=== PATIENT | male | born 1955 | race Caucasian/White ===

== ENCOUNTER 2019-08-07 10:41 | Outpatient (RCR) | payer OTHER, SELFPAY ==
--- NOTE | 2019-08-07 11:30 | PCSTNOTE ---
Addendum entered by ANTHONY Hubbard 08/19/19 12:26: Upon completion of a modified barium swallow evaluation, which revealed normal swallow ability, it has been determined that no further speech therapy is warranted at this time. Original Note: Pt came with order which stated dysphagia therapy; Pt stated that he has not completed a modified barium swallow (MBS) indicating definitively that he, in fact, has dysphagia. Dr Gupta's office was notified re this matter. Office staff Maribel stated they would contact the pt to schedule the MBS and to table the therapy for now until its definitively indicated.
== END 2019-11-05 23:59 | disposition home or self-care (01) ==
LOC: ANHST 10:41
PROVIDERS: PCP Family Medicine; Visit Provider Internal Medicine Critical Care Medicine
DX: R13.10 Dysphagia, unspecified (principal); R05 Cough
CPT/HCPCS: 99199

== ENCOUNTER 2019-08-19 09:40 | Outpatient (CLI) | payer OTHER, SELFPAY ==
--- NOTE | ~2019-08-19 | XR_ITS ---
EXAMINATION: XR barium swallow modified EXAM DATE: 08/19/2019 10:09 INDICATION: Dysphagia. TECHNIQUE: Modified barium esophagram was performed by myself to administered fluoroscopy, in conjun ction with speech pathologist who administered barium in varying consistencies as per speech patholog ist documentation. This was recorded on tape. The DAP for this procedure was 0.6 Gycm2. FINDINGS: Oral stage: Adequate function. Pharyngeal phase: Adequate function. Laryngeal penetration: None. Aspiration: None. Laryngeal sensitivity: Present. IMPRESSION: Normal modified esophagram exam. Please refer to speech pathologist findings and specifi c feeding recommendations. Reviewed, dictated and finalized at location A. RUCTOR DANCING IMPRESSION: Normal modified esophagram exam. Please refer to speech pathologis t findings and specific feeding recommendations.
--- NOTE | 2019-08-19 12:25 | STOPEVAL ---
MODIFIED BARIUM SWALLOW EVALUATION: Thank you for referring this patient to [facility]. Attending Provider: Mcehe Gupta MD Referring Provider: KRISTYN Outpatient Evaluation Start: 08/19/19 11:03 Freq: Status: Active Protocol: Document 08/19/19 10:00 CHRISTAL (Rec: 08/19/19 11:10 BECHERERT [id number]) Therapy Assessment Status Assessment Status Assessment Status Evaluation Evaluation Information Problem Diagnosis dysphagia Prior Level of Function Prior Swallow Level Prior Intake Method Oral Prior Diet Regular (Level 7 Diet) Prior Liquid Consistency Thin (Level 0 Diet) Prior Cognition/Communication Prior Communication Level No Impairment Pain Assessment Timing of Pain Assessment Timing of Pain Assessment Assessment Self Report Self Report Pain Level 0 Pain Scale Pain Scale Used Numeric (1 - 10) Pain Score Pain Score 0: Self Report Modified Barium Swallow Evaluation Recent Swallowing History Reported Difficult Consistencies Unable to Identify Intake Method Prior to Swallow Oral Evaluation Diet Prior to Swallow Evaluation Regular, Level 7 Liquid Consistency Prior to Swallow Thin (0) Evaluation Consistency Thin Uncontrolled 2 Method of Presentation Straw Oral Preparatory Symptoms None Oral Phase Symptoms None Pharyngeal Phase Symptoms None Severity of Vallecular Residue None - 0% No Residue Severity of Pyriform Sinus Residue None - 0% No Residue 8 Point Laryngeal Penetration-Aspiration Material Does Not Enter Airway Scale Cervical/Esophageal Symptoms None Thin Uncontrolled 1 Method of Presentation Cup Oral Preparatory Symptoms None Oral Phase Symptoms None Pharyngeal Phase Symptoms None Severity of Vallecular Residue None - 0% No Residue Severity of Pyriform Sinus Residue None - 0% No Residue 8 Point Laryngeal Penetration-Aspiration Material Does Not Enter Airway Scale Cervical/Esophageal Symptoms None Solid Consistency Other Amount tested with cracker as well as liquid/solid mix Method of Presentation Spoon Oral Preparatory Symptoms None Oral Phase Symptoms None Pharyngeal Phase Symptoms None Severity of Vallecular Residue None - 0% No Residue Severity of Pyriform Sinus Residue None - 0% No Residue 8 Point Laryngeal Penetration-Aspiration Material Does Not Enter Airway Scale Pureed Consistency Method of Presentation Spoon Oral Preparatory Symptoms None Oral Phase Symptoms None Pharyngeal Phase Symptoms None Severity of Vallecular Residue None - 0% No Residue
== END 2019-08-19 09:41 | disposition home or self-care (01) ==
LOC: ANHIMG 09:44
PROVIDERS: PCP Family Medicine; Visit Provider Internal Medicine Critical Care Medicine
DX: R13.10 Dysphagia, unspecified (principal)
CPT/HCPCS: 92611

== ENCOUNTER 2020-02-18 02:18 | Outpatient (CLI) | payer OTHER, SELFPAY ==
[2020-02-18 18:38] LABS: SARS-CoV-2 RNA PCR Negative
== END 2020-02-18 02:19 | disposition home or self-care (01) ==
LOC: ANHCOVIDDT 02:18
PROVIDERS: PCP Family Medicine; Visit Provider Podiatrist Foot & Ankle Surgery
DX: Z01.812 Encounter for preprocedural laboratory examination (principal); Z20.828 Contact with and (suspected) exposure to other viral communicable diseases
CPT/HCPCS: 87635; C9803; U0003

== ENCOUNTER 2020-02-20 00:42 | Day surgery (SDC) | payer OTHER, SELFPAY ==
[2020-02-03 08:37] VITALS: BMI 30.2
[2020-02-20] VITALS (7 sets, daily range): BP systolic 102–142; BP diastolic 66–92; PULSE 64–71; RESP 12–16; TEMP 36.4–36.6; O2SAT 95–100
--- NOTE | ~2020-02-20 | XR_ITS ---
EXAMINATION: XR surgery orthopedic EXAM DATE: 02/20/2020 11:13 INDICATION: Nonunion repair. TECHNIQUE: Fluoroscopy used during XR surgery orthopedic performed by Dr. Elliot Durbin JR MD. The DAP for this procedure was 1.2 cGycm2. No prior FINDINGS: Status post 1st metatarsophalangeal arthrodesis with surgical plate bridging this joint, e vidence of gas. Correlate with procedure note. IMPRESSION: Fluoroscopy used during XR surgery orthopedic. Reviewed, dictated and finalized at location B.
[2020-02-20] MEDS: LACTATED RINGERS 1,000 ML 30 ML IV CONT ×2 (07:15→11:28)
--- NOTE | 2020-02-20 07:19 | WPDANESEPPF ---
Anes - Initial Pre Proc Eval Procedure: Operation Date: 02/20/20 09:00 Proposed Procedures p Repair Nonunion First Metatarsal Phalangeal Joint Right Foot - Elliot Durbin JR, MD Date/Time: 02/20/20 07:19 Surgeon: Elliot Durbin JR, MD Pre Op Diagnosis: NON UNION 1ST MPJ RIGHT FOOT Patient Data Age: 64 Gender: M Height: 5 ft 10 in Weight: 91.5 kg Allergies Allergy/AdvReac Type Severity Reaction Status Date / Time No Known Allergies Allergy unk Uncoded 02/20/20 07:06 Home Medications Medication Instructions Recorded Confirmed Type aspirin 325 mg tablet,delayed 325 mg PO DAILY 07/16/19 02/20/20 History release ezetimibe 10 mg tablet 10 mg PO DAILY #90 tablet 12/17/19 02/20/20 Rx Patient hx anesthesia problems: none Family hx anesthesia problems: none PMFSH Past Medical History Medical History COPD (chronic obstructive pulmonary disease) Hyperlipidemia Tobacco use Surgical History Surgical History H/O foot surgery Family History Family History Other Family history of coronary artery disease Family history of primary malignant neoplasm of liver Hypertension Social History Social History Social History: pt smoke a half pack a day Smoking packs per day: 1 Smoking cigarettes per day: 20.0 Years smoked: 20 Smoking pack-years: 20.00 Smoking status: Current every day smoker Tobacco type: cigarettes Alcohol intake: current Drinks per week: 3 Substance use: never Substance use type: does not use Living arrangements: with family Gender identity (if verbalized by the patient): Male Sexual Orientation (if Verbalized by the Patient): Straight or Heterosexual Spiritual care concerns: No Anes - Eval Final PreProcedure Day of Procedure 02/20/20 07:19 Patient weight: overweight Heart: regular rate and rhythm Lungs: decreased breath sounds Airway: Mallampati scale class II Neurological: alert and oriented Last oral intake: >/= 8 hours ASA classification: III Emergent: no Anesthetic plan: proceed Anesthesia type and monitoring: general and standard monitoring Informed Consent: The patient's anesthetic plan and its attendant risks and benefits were discussed with the patient/family/POA. Questions were solicited and answers provided to the satisfaction of the patient/family/POA.
--- NOTE | 2020-02-20 07:25 | WPDHPUPDATE1 ---
History and Physical Update Update Date/Time: 02/20/20 07:25 History and Physical has been reviewed, including an updated exam of the patient. There are NO changes in the patient's condition. Risks, benefits, and alternatives have been discussed and questions answered. Patient agrees to proceed with procedure.
[2020-02-20] MEDS: ceFAZolin 2 GM/D5W 50 ML 2 GM/50 ML BAG IVPB (09:15)
--- NOTE | 2020-02-20 11:29 | PM.OP ---
Procedure Note - Brief Procedure Note - Brief Date of procedure: 02/20/20 Pre-op diagnosis: NON UNION 1ST MPJ RIGHT FOOT Post-op diagnosis: same Procedure performed: Repair of nonunion first metatarsal phalangeal joint of the right foot Anesthesia: GLMA Surgeon: Elliot Durbin JR, DPM Estimated blood loss (mL): 1 Complications: No immediate complications Condition: stable Disposition: same day
--- NOTE | 2020-02-20 15:57 | OP_ITS ---
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 PROCEDURE: Repair of nonunion of the first metatarsophalangeal joint of the right foot. PATHOLOGY: After exposure of the capsule, wound culture swab was taken and sent for aerobic and anaerobic culture and sensitivities as well as Gram stain, furthermore bone from the resection site of the nonunion from the head of the first metatarsal was resected and passed from the operative site and sent for gross and histopathology to evaluate for bone infection. ANESTHESIA: General LMA with local. HEMOSTASIS: Pneumatic ankle tourniquet at 250 mmHg. ESTIMATED BLOOD LOSS: Minimal. MATERIALS USED: One [employer] small revision first metatarsophalangeal joint plate, 1 tricortical allograft, 3-0 PDS, 4-0 Vicryl, and 4-0 Prolene. INJECTABLES: 20 mL of Exparel injected preoperatively. COMPLICATIONS: None. PROCEDURE IN DETAIL: Under mild sedation, the patient was brought into the operating room and placed on the operating table in the supine position. Pneumatic ankle tourniquet was placed about the patient's right ankle. Following general anesthesia, local anesthesia was obtained about the right foot utilizing 20 mL of Exparel infiltrated in a Mooney block along the base of the first metatarsal. The foot was then scrubbed, prepped, and draped in the usual aseptic manner. An Esmarch bandage was then used to exsanguinate the patient's right foot and pneumatic ankle tourniquet was then inflated. Surgery began in the following manner: Attention was directed to the dorsum of the first metatarsophalangeal joint of the right foot where an incision was made overlying the old incision. The incision was approximately 6 cm in length. The incision was continued deep down through the subcutaneous tissues using sharp and blunt dissection. There was no purulence or any signs of infection noted. At this point, the extensor hallucis longus was identified and retracted laterally. This exposed the hypertrophic capsule overlying the 1st metatarsophalangeal joint. A full length periosteal and capsular incision was made, full length of the skin incision. I exposed the entire base of the proximal phalanx as well as the distal first metatarsal including the plate overlying the nonunion site of the first metatarsophalangeal joint. There was loosening of the screws and plate noted. All of the screws were removed easily utilizing the Vixar plate system. Once the plate and screws were removed, fluoroscopic x-ray was used to make sure to visualize the nonunion site. At this point, utilizing a rongeur, the nonunion site was resected of all fibrous, pseudoarthrosis tissue at the first metatarsophalangeal joint. Next utilizing a sagittal bone saw, the proximal most portion of the base of the proximal phalanx was resected approximately 2-3 mm until healthy bone was visualized. The same was performed across the distal aspect of the first metatarsal. This bone was sent for gross and histopathology. At this point, a deep wound culture swab was also taken and sent for aerobic and anaerobic culture and sensitivities as well as Gram stain. Care was taken to make sure that there were no remnants of fibrous non union tissue remaining. A rotary power bur was used to remodel the base of the proximal phalanx as well as the head of the 1st metatarsal as the hypertrophic nonunion caused excessive bone formation. Once remodeling of the base of the proximal phalanx and first metatarsal was achieved, the wound site was flushed with copious amounts of sterile saline. There was s
== END 2020-02-20 13:01 | disposition home or self-care (01) ==
PROVIDERS: PCP Family Medicine; Visit Provider Podiatrist Foot & Ankle Surgery
PROC: (CPT 28750; principal; 2020-02-20 09:00)
DX: M96.0 Pseudarthrosis after fusion or arthrodesis (principal)
CPT/HCPCS: 28322; 87070; 87075; 87205; 88304; 88305; 88311; C1713; C9290; J0690; J1100; J2250; J2370; J2405; J2704; J3010; J7120

== ENCOUNTER 2020-09-17 13:54 | Outpatient (CLI) | payer OTHER, SELFPAY | END 2020-09-17 13:55 | disposition home or self-care (01) | LOC: ANHCOVIDVC 13:54 | PROVIDERS: PCP Family Medicine | DX: Z23 Encounter for immunization (principal) | CPT/HCPCS: 0001A; 91300 ==

== ENCOUNTER 2020-10-08 14:02 | Outpatient (CLI) | payer OTHER, SELFPAY | END 2020-10-08 14:03 | disposition home or self-care (01) | LOC: ANHCOVIDVC 14:02 | PROVIDERS: PCP Family Medicine | DX: Z23 Encounter for immunization (principal) | CPT/HCPCS: 0002A; 91300 ==

== ENCOUNTER 2020-12-22 09:43 | Outpatient (CLI) | payer OTHER, SELFPAY ==
--- NOTE | ~2020-12-22 | CT_ITS ---
EXAMINATION: CT sinus wo con DATE: 12/22/2020 09:58 INDICATION: Right-sided maxillary pain for 6 months. Headaches. TECHNIQUE: Computed tomography (CT) of the paranasal sinuses was performed without intravenous contra st. The dose-length product was 273.54 mGy-cm. Automated exposure control and iterative reconstructio n technique were employed. COMPARISON: None FINDINGS: Paranasal sinuses and mastoids are pneumatized. There is mild mucosal thickening of the max illary sinuses. Leftward nasal septal deviation. Ostiomeatal units are patent. No air-fluid levels. T here is mild mucosal thickening of the frontal and anterior ethmoid air cells. Mastoids are pneumatiz ed. IMPRESSION: 1. Mild sinus disease. Reviewed, dictated and finalized at location B. IMPRESSION: 1. Mild sinus disease.
== END 2020-12-22 09:44 | disposition home or self-care (01) ==
PROVIDERS: PCP Family Medicine; Visit Provider Nurse Practitioner Family
DX: J32.9 Chronic sinusitis, unspecified (principal); R51.9 Headache, unspecified
CPT/HCPCS: 70486

== ENCOUNTER 2021-02-15 17:09 | Inpatient (IN) | payer OTHER, SELFPAY ==
[2021-02-15] VITALS (8 sets, daily range): BP systolic 135–165; BP diastolic 79–92; PULSE 61–78; RESP 18–20; TEMP 36.5–37.2; O2SAT 97–100; BMI 29.4
--- NOTE | ~2021-02-15 | XR_ITS ---
EXAMINATION: XR surgery orthopedic DATE: 02/17/2021 11:14 INDICATION: Right forefoot osteomyelitis. TECHNIQUE: 2 intraoperative fluoroscopic views of right foot were obtained. I was not present. Fluoro scopy exposure time was 6 seconds. COMPARISON: Right foot radiographs 02/15/2021 FINDINGS: The initial images demonstrate an arthrodesis procedure of first metatarsophalangeal joint with plate and screws. The second image demonstrates removal of the hardware and amputation at the di aphysis of first metatarsal. There is an old fracture of neck of third metatarsal. IMPRESSION: 1. Transmetatarsal amputation of the first ray. Reviewed, dictated and finalized at location B.
--- NOTE | ~2021-02-15 | XR_ITS ---
XR foot RT min 3V DATE: 02/15/2021 18:01 INDICATION: Right foot ulcer. 2 previous surgeries to first and second digits. TECHNIQUE: 4 views COMPARISON: 07/26/2010 right foot FINDINGS: There is a plate and screws spanning from the proximal shaft of the first metatarsal to the mid shaft of the proximal phalanx of the first digit. There is extensive bone destruction at the first metatarsal head and base of the first proximal phala nx. There is surrounding prominent soft tissue swelling. The radiographic findings are highly suspi cious for osteomyelitis. There is prominent lucency surrounding the proximal and distal aspects of the first ray surgical plat e, compatible with loosening. There is a fusion device spanning the proximal interphalangeal joint of the second digit. There is flattening and deformity of the third metatarsal head, shortening of the third metatarsal santi ne and chronic organized callus of the distal shaft and neck and head of this third digit, consistent with old healed fracture. Osteonecrosis of the third metatarsal head is not excluded. There is osteoarthritis at the tarsal and tarsal metatarsal joints. IMPRESSION: Suspected osteomyelitis of the first metatarsal and proximal phalanx of the first digit Loosening of surgical fusion plate at first metatarsophalangeal area Status post surgical fusion at second PIP joint Old fracture deformity/shortening of third metatarsal; possible osteonecrosis of third metatarsal hea d Reviewed, dictated and finalized at location A. IMPRESSION: Suspected osteomyelitis of the first metatarsal and proximal phalan x of the first digit Loosening of surgical fusion plate at first metatarsophalangeal area Status post surgical fusion at second PIP joint Old fracture deformity/shortening of third metatarsal; possible osteonecrosis o f third metatarsal head
[2021-02-15 17:56] LABS: Basophils Absolute Auto 0.1 K/mm3 (0.0-0.1); Basophils Percent Auto 1.1 % (0.2-1.2); Eosinophils Absolute Auto 0.3 K/mm3 (0-0.3); Eosinophils Percent Auto 3.2 % (0-4.4); Hematocrit 41.5 % (42.0-52.0); Hemoglobin 14.2 g/dL (14.0-18.0); Immature Granulocyte Absolute 0.02 K/mm3 (0.00-0.031); Immature Granulocyte Percent A 0.2 % (0-0.5); Lymphocytes Percent Auto 25.2 % (18.3-44.2); Mean Corpuscular HGB Conc 34.2 g/dl (32-36); Mean Corpuscular Hemoglobin 33.3 pg (26-34); Mean Corpuscular Volume 97.2 fl (80-100); Mean Platelet Volume 9.8 fl (7.4-10.4); Monocytes Percent Auto 12.5 % (2.6-8.5); Neutrophils Absolute Auto 4.8 K/mm3 (1.3-6.7); Neutrophils Percent Auto 57.8 % (45.5-73.1); Platelet Count Result 187 k/mm3 (150-375); Red Blood Count 4.27 M/mm3 (4.6-6.20); Red Cell Distribution Width 12.1 % (11.5-14.5); White Blood Count 8.3 K/mm3 (4.5-10.0)
[2021-02-15 18:21] LABS: Alanine Aminotransferase 35 U/L (4-50); Albumin Level 4.2 g/dL (3.5-5.1); Alkaline Phosphatase 51 U/L (38-126); Anion Gap 5 mmol/L (8-16); Aspartate Amino Transferase 38 U/L (17-59); Bilirubin,Total 0.4 mg/dL (0.2-1.3); Blood Urea Nitrogen 13 mg/dL (9-20); Calcium 9.5 mg/dL (8.4-10.2); Carbon Dioxide 27 mmol/L (22-30); Chloride 107 mmol/L (98-107); Estimated CRCL calculation 68 ml/min; Estimated Glomerular Filt Rate > 60; Glucose 84 mg/dL (65-110); Potassium 4.1 mmol/L (3.4-5.0); Sodium 139 mmol/L (137-145)
[2021-02-15 18:24] LABS: CRP 3.6 mg/dL (<1.0)
[2021-02-15 18:36] LABS: Erythrocyte Sedimentation Rate 45 mm/hr (0-20)
--- NOTE | 2021-02-15 19:29 | ED.GENADULT ---
HPI - General Adult General Chief complaint: Unspecified Stated complaint: sent by PCP Time Seen by Provider: 02/15/21 19:10 Source: patient Mode of arrival: ambulatory Limitations: no limitations History of Present Illness HPI narrative: Patient is sent here from the podiatry office for IV antibiotics for a right foot ulcer and cellulitis. Physician is requesting vancomycin and Zosyn x1. Patient states that he had chills approximately 3 days ago and was treated at home with leftover penicillin and those have resolved. His max temp was 101 at home. He states that he has had difficulty with ulcer on this foot for quite some time, this particular episode was precipitated by removing a callus on his right foot. He has peripheral neuropathy, he is not a diabetic, he is a smoker. Onset (ago): day(s) Related Data Home Medications Medication Instructions Recorded Confirmed aspirin 325 mg tablet,delayed 325 mg PO DAILY 07/16/19 01/11/21 release ezetimibe mg 02/15/21 Allergies Allergy/AdvReac Type Severity Reaction Status Date / Time No Known Allergies Allergy unk Uncoded 02/15/21 19:18 Review of Systems Review of Systems: All systems reviewed & are unremarkable except as noted in HPI and below PMFSH Past Medical History Medical History Abnormal CT of paranasal sinuses COPD (chronic obstructive pulmonary disease) Hyperlipidemia Tobacco use Surgical History Surgical History H/O foot surgery Family History Family History Other Family history of coronary artery disease Family history of primary malignant neoplasm of liver Hypertension Social History Social History Social History: pt smoke a half pack a day Smoking packs per day: 1 Smoking cigarettes per day: 20.0 Years smoked: 20 Smoking pack-years: 20.00 Smoking status: Current every day smoker Tobacco type: cigarettes Alcohol intake: current Drinks per week: 3 Substance use: never Substance use type: does not use Gender identity (if verbalized by the patient): Male Spiritual care concerns: No Exam Const: General: cooperative, healthy appearing and comfortable HENMT: Head: normal to inspection Ears: TM's normal bilaterally Mouth: Yes moist mucous membranes Resp: Effort & Inspection: normal respiratory effort Auscultation: clear to auscultation bilaterally Cardio: Rate: regular rate Rhythm: regular rhythm Peripheral pulses: Peripheral pulses 2+ throughout Skin: General skin exam: normal color (with exception of right great toe and surrounding area. ) and erythema (surrounding toes 1 & 2 right foot and swelling) Wounds: wounds noted (ulcer to right foot, just below great toe. debrided today in phys office.) Neuro: General: patient oriented x3 Extrem: Right lower extremity: normal capillary refill and foot Details: normal capillary refill and edema Location: of the dorsal foot, of the great toe and of another digit Location: the 2nd digit Psych: Appearance: grossly normal Course Course Emergency Course: Spoke with Dr. Durbin on the phone regarding x-ray findings. He would like the patient admitted for IV antibiotics until amputation on . Plan discussed with the patient and his and they are in agreement. Area of erythema was outlined here in the ER. Vital Signs Vital signs: Vital Signs Temperature 36.5 C 02/15/21 17:35 Pulse Rate 78 02/15/21 17:35 Respiratory Rate 18 02/15/21 17:35 Blood Pressure 139/85 02/15/21 17:35 Pulse Oximetry 100 02/15/21 17:35 Temperature 37.2 C 02/15/21 19:13 Pulse Rate 70 02/15/21 20:01 Respiratory Rate 18 02/15/21 20:01 Blood Pressure 145/82 H 02/15/21 20:01 Pulse Oximetry 100 02/15/21 20:01 Medical Decision Making Vital Signs Vital Signs: Vital Sign
--- NOTE | 2021-02-15 20:28 | PM.IMHP ---
H&P: HPI History of Present Illness Date/Time: 02/15/21 20:28 Chief Complaint: Right toe pain Narrative: Patient is a 65-year-old male with past medical history of cholesterol and CAD, and right toe surgery, presenting with pain and worsening apparent infection of right toe. Has had surgery and correction on right toe with Podiatry, was not welfare analyst's office as outpatient earlier today, and found that he had an infection, and was sent to emergency room here to be started on IV antibiotics. Patient says he feels good enough to not be admitted, and be treated as an outpatient, and denies systemic symptoms. Is not able to bear weight on the foot. Past medical history: Dyslipidemia TIA in 2018 Allergies: None reported Medications: Aspirin ezetimibe Family history: Unaware of major health problems run in the family Social history: Heavy smoking history Surgeries: Multiple procedures on the right toe ER course: Vitals: Unremarkable, including afebrile and not tachypneic, hypertension systolic blood pressure 145 Labs: No white count, however elevated ESR CRP Interventions: IV vancomycin and Zosyn ordered, foot x-ray shows suspected osteomyelitis of right big toe Review of Systems Constitutional: Constitutional: Reports as per HPI and Reports no additional constitutional complaints Cardiovascular: Cardiovascular: Denies chest pain and Denies palpitations Respiratory: Respiratory: Denies dyspnea and Denies dyspnea on exertion Gastrointestinal: Gastrointestinal: Denies abdominal pain, Denies bloating, Denies constipation and Denies diarrhea Musculoskeletal: Musculoskeletal: Reports no additional musculoskeletal complaints and Reports as per HPI Comments: Severe right toe pain and swelling Integumentary/Breasts: Skin/Breast: Reports dry skin, Reports pruritus and Reports unusual bruising Comments: Severe right toe pain and swelling Neurologic: Reports system reviewed and no additional complaints, except as documented, Denies confusion, Denies headache(s) and Denies numbness PMFSH Past Medical History Medical History Abnormal CT of paranasal sinuses COPD (chronic obstructive pulmonary disease) Hyperlipidemia Tobacco use Surgical History Surgical History H/O foot surgery Family History Family History Other Family history of coronary artery disease Family history of primary malignant neoplasm of liver Hypertension Social History Social History Social History: pt smoke a half pack a day Smoking packs per day: 1 Smoking cigarettes per day: 20.0 Years smoked: 20 Smoking pack-years: 20.00 Smoking status: Current every day smoker Tobacco type: cigarettes Alcohol intake: current Drinks per week: 3 Substance use: never Substance use type: does not use Gender identity (if verbalized by the patient): Male Spiritual care concerns: No Meds Home Medications and Allergies Home Medications Medication Instructions Recorded Confirmed Type aspirin 325 mg tablet,delayed 325 mg PO DAILY 07/16/19 01/11/21 History release ezetimibe mg 02/15/21 History Allergies Allergy/AdvReac Type Severity Reaction Status Date / Time No Known Allergies Allergy unk Uncoded 02/15/21 19:18 Vital Signs Vital Signs - 24 hr 02/15/21 17:35 02/15/21 18:55 02/15/21 19:01 Temperature 97.7 F 98.6 F Pulse Rate 78 74 Respiratory Rate 18 18 Blood Pressure 139/85 150/89 H 138/79 Pulse Oximetry 100 100 100 02/15/21 19:13 02/15/21 19:30 02/15/21 20:01 Temperature 98.9 F Pulse Rate 74 76 70 Respiratory Rate 18 18 18 Blood Pressure 138/79 140/86 145/82 H Pulse Oximetry 100 97 100 Exam Neck: Neck: no JVD Resp: Effort & Inspection: normal respiratory effort Auscultation: clear to auscultation bilaterally Cardi
--- NOTE | 2021-02-15 23:30 | ADMGEN ---
This patient, Servando Perez, was admitted to [facility] Surg Room 323-02. Patient/family oriented to hospital policies and general routines including ID bracelet, bed and alarms, visiting hours, pain management, procedures, bathroom and other care routines, personal items, smoking policy, room service/diet, and visiting hours. Information on how to activate the Rapid Response Team has been discussed. Patient/Family are encouraged to report perceived risks to care and to ask questions if they do not understand what they are told or what they should do.
[2021-02-16 06:00] VITALS: BP 129/80; PULSE 52; RESP 20; TEMP 36.2; O2SAT 100
[2021-02-16 06:44] LABS: Basophils Absolute Auto 0.1 K/mm3 (0.0-0.1); Basophils Percent Auto 1.2 % (0.2-1.2); Eosinophils Absolute Auto 0.3 K/mm3 (0-0.3); Eosinophils Percent Auto 3.9 % (0-4.4); Hemoglobin 14.3 g/dL (14.0-18.0); Immature Granulocyte Absolute 0.01 K/mm3 (0.00-0.031); Immature Granulocyte Percent A 0.2 % (0-0.5); Lymphocytes Absolute Auto 2.31 K/mm3 (0.9-3.2); Lymphocytes Percent Auto 35.8 % (18.3-44.2); Mean Corpuscular HGB Conc 33.3 g/dl (32-36); Mean Corpuscular Hemoglobin 33.3 pg (26-34); Monocytes Absolute Auto 0.8 K/mm3 (0.1-0.6); Monocytes Percent Auto 12.1 % (2.6-8.5); Neutrophils Percent Auto 46.8 % (45.5-73.1); Platelet Count Result 186 k/mm3 (150-375); Red Cell Distribution Width 12.2 % (11.5-14.5); White Blood Count 6.5 K/mm3 (4.5-10.0)
[2021-02-16 06:58] LABS: Alanine Aminotransferase 30 U/L (4-50); Alkaline Phosphatase 53 U/L (38-126); Anion Gap 6 mmol/L (8-16); Aspartate Amino Transferase 34 U/L (17-59); Bilirubin,Total 0.5 mg/dL (0.2-1.3); Blood Urea Nitrogen 13 mg/dL (9-20); Calcium 9.2 mg/dL (8.4-10.2); Carbon Dioxide 28 mmol/L (22-30); Chloride 104 mmol/L (98-107); Estimated CRCL calculation 68 ml/min; Estimated Glomerular Filt Rate > 60; Glucose 100 mg/dL (65-110); Phosphorus 3.8 mg/dL (2.5-4.5); Potassium 4.6 mmol/L (3.4-5.0); Sodium 138 mmol/L (137-145)
[2021-02-16] MEDS: ASPIRIN 81 MG CHEWABLE TABLET PO (08:37)
[2021-02-16] MEDS: ENOXAPARIN 40 MG/0.4 ML SYRINGE SUB-Q (08:37)
--- NOTE | 2021-02-16 11:28 | WPDINFPN2 ---
Progress Note: A&P Assessment and Plan (1) Osteomyelitis of great toe of right foot: Code(s): M86.9 - Osteomyelitis, unspecified Status: Acute Assessment and Plan: Probable (not confirmed by detailed imaging nor biopsy) acute osteomyelitis of R 1st toe and MT. REC Ctx #2. BCs in process. He requires removal of all hardware for proper treatment, and if this is done I request concurrent bone biopsy for histopathology and culture. Once hardware is removed, 4 weeks of IV therapy, choice modified by his culture result. If on other hand he has ray amputation, would not need prolonged IV antibiotics post op. Subjective Date/time seen: 02/16/21 11:28 Objective Data Vital Signs Vital Signs: Vital Signs - 24 hr 02/15/21 17:35 02/15/21 18:55 02/15/21 19:01 Temperature 36.5 C 37.0 C Pulse Rate 78 74 Respiratory Rate 18 18 Blood Pressure 139/85 150/89 H 138/79 Pulse Oximetry 100 100 100 02/15/21 19:13 02/15/21 19:30 02/15/21 20:01 Temperature 37.2 C Pulse Rate 74 76 70 Respiratory Rate 18 18 18 Blood Pressure 138/79 140/86 145/82 H Pulse Oximetry 100 97 100 02/15/21 23:00 02/15/21 23:05 02/16/21 06:00 Temperature 36.8 C 36.8 C 36.2 C L Pulse Rate 62 61 52 L Respiratory Rate 18 20 20 Blood Pressure 135/82 165/92 H 129/80 Pulse Oximetry 98 100 100 Intake/Output Intake/Output: Intake & Output 02/13/21 02/14/21 02/15/21 02/16/21 23:59 23:59 23:59 23:59 Intake Total 300 850 Balance 300 850 Meds/Results Medications: Active Medications Generic Name Dose Route Start Last Admin Trade Name Freq PRN Reason Stop Dose Admin Hydrocodone Bitart/Acetaminophen 1 tab 02/15/21 20:41 Hydrocodone/Acetaminophen (*Crx) 5-325 Mg Tablet PO Q6HR PRN Pain Aspirin 81 mg 02/16/21 08:00 02/16/21 08:37 Aspirin 81 Mg Chewable Tablet PO 81 mg DAILY@0800 RON Administration Enoxaparin Sodium 40 mg 02/16/21 09:00 02/16/21 08:37 Enoxaparin 40 Mg/0.4 Ml Syringe SUB-Q 40 mg DAILY RON Administration Ceftriaxone Sodium/Dextrose 1 gm in 50 mls @ 100 mls/hr 02/15/21 23:00 02/16/21 00:24 Rocephin 1 Gm/D5w 50 Ml IVPB Infused DAILY@2200 RON Infusion Silver Nitrate 1 applic 02/16/21 09:00 Silvergel (Elta) 45 Ml TOPICAL DAILY [facility] Radiology Results: ITS Impressions Foot X-Ray 02/15/21 18:04 IMPRESSION: Suspected osteomyelitis of the first metatarsal and proximal phalanx of the first digit Loosening of surgical fusion plate at first metatarsophalangeal area Status post surgical fusion at second PIP joint Old fracture deformity/shortening of third metatarsal; possible osteonecrosis of third metatarsal head Labs Labs: Laboratory Results - last 24 hr 02/15/21 02/15/21 02/15/21 17:49 17:49 17:49 WBC 8.3 RBC 4.27 L Hgb 14.2 Hct 41.5 L MCV 97.2 MCH 33.3 MCHC 34.2 RDW 12.1 Plt Count 187 MPV 9.8 Immature Gran % (Auto) 0.2 Neut % (Auto) 57.8 Lymph % (Auto) 25.2 Patrick % (Auto) 12.5 H Eos % (Auto) 3.2 Baso % (Auto) 1.1 Lymph # (Auto) 2.10 Patrick # (Auto) 1.0 H Eos # (Auto) 0.3 Baso # (Auto) 0.1 Abs Immat Gran (auto) 0.02 Absolute Neuts (auto) 4.8 Absolute Nucleated RBC 0.0 Nucleated RBC % 0.0 ESR Sodium 139 Potassium 4.1 Chloride 107 Carbon Dioxide 27 Anion Gap 5 L BUN 13 Creatinine 1.00 Estim Creat Clear Calc 68 Estimated GFR > 60 Glucose 84 Lactic Acid 1.0 Calcium 9.5 Phosphorus Magnesium Total Bilirubin 0.4 AST 38 ALT 35 Alkaline Phosphatase 51 C-Reactive Protein Total Protein 7.0 Albumin 4.2 02/15/21 02/15/21 02/16/21 17:49 17:49 06:11 WBC 6.5 RBC 4.30 L Hgb 14.3 Hct 43.0 MCV 100.0 MCH 33.3 MCHC 33.3 RDW 12.2 Plt Count 186 MPV 10.0 Immature Gran % (Auto) 0.2 Neut % (Auto) 46.8 Lymph % (Auto) 35.8 Patrick % (Auto) 12.
--- NOTE | 2021-02-16 11:28 | PM.IMPN ---
Progress Note: A&P Assessment and Plan (1) Osteomyelitis: Code(s): M86.9 - Osteomyelitis, unspecified Status: Acute Assessment and Plan: Patietn with chronic right 1st metatarsal changes s/p surgery with hardware. Pt presents with small draining ulcer with xray showing suspected osteomyelitis of the first metatarsal and proximal phalanx of the first digit, loosening of surgical fusion plate at first metatarsophalangeal area and old fracture of 3rd metatarsal. Can not exclude osteonecrosis to the third metatarsal head. Concner for infected surgical hardware. No fevers and normal WBC. Was on Zosyn and Vanco but changed to Rocephin now. Continue current abx. Appreciate ID input. Appreciate Podiatry input. (2) Tobacco abuse: Code(s): Z72.0 - Tobacco use Status: Acute Assessment and Plan: Patient was educated about the benefits of smoking cessation. (3) Hyperlipidemia: Code(s): E78.5 - Hyperlipidemia, unspecified Status: Acute Assessment and Plan: Stable. Okay to resume Zetia. (4) Peripheral neuropathy: Code(s): G62.9 - Polyneuropathy, unspecified Status: Acute Assessment and Plan: Patient has a history of peripheral neuropathy that is longstanding. No clear diagnosis. He has been screened for diabetes is negative. Glucose normal here. Possibly related to his chronic back pain. Will check B12, etc. (5) DVT prophylaxis: Code(s): Z29.9 - Encounter for prophylactic measures, unspecified Status: Acute Assessment and Plan: Lovenox Subjective Date/time seen: 02/16/21 11:29 Interval history: 65yo male with hx of TIA, HLD and chronic right toe surgeries here for right foot infection. Assuming care. Chart reviewed. Patient denies having any CAD. He has had multiple surgeries to the right great toe. Had surgery to the right great toe in 2019 with surgical repair and repeat surgery in 2020. He also has had infections in the past treated with oral abx but not assisted IV abx. Was taking oral abx from his prior to admission. Feels well. No pain to the LE due to bilateral LE neuropathy. He has seen neurology but no etiology of the neuropathy. He has had low back pain with sciatica in the past but this has improved. No CP or SOB. No n/v/d. COVD vaccine in august with [employer]. Exam Narrative: AF 97.2 129/80 52 20 100% ra Gen - NARD Chest - CTA bilaterally, nml RR CV - RRR S1/S2 Abd - Soft, NT/ND, Positive BS Ext - No pedal edema. edema nd deformity to the right great toe and distal medial right foot Neuro - Alert and oriented. Nonfocal exam. Psych - Nml mood and affect Skin - right plantar surface with approx 1cm round ulcer with serosang staining to the dressing. Objective Data Vital Signs Vital Signs: Vital Signs - 24 hr 02/15/21 17:35 02/15/21 18:55 02/15/21 19:01 Temperature 97.7 F 98.6 F Pulse Rate 78 74 Respiratory Rate 18 18 Blood Pressure 139/85 150/89 H 138/79 Pulse Oximetry 100 100 100 02/15/21 19:13 02/15/21 19:30 02/15/21 20:01 Temperature 98.9 F Pulse Rate 74 76 70 Respiratory Rate 18 18 18 Blood Pressure 138/79 140/86 145/82 H Pulse Oximetry 100 97 100 02/15/21 23:00 02/15/21 23:05 02/16/21 06:00 Temperature 98.3 F 98.3 F 97.2 F L Pulse Rate 62 61 52 L Respiratory Rate 18 20 20 Blood Pressure 135/82 165/92 H 129/80 Pulse Oximetry 98 100 100 Intake/Output Intake/Output: Intake & Output 02/13/21 02/14/21 02/15/21 02/16/21 23:59 23:59 23:59 23:59 Intake Total 300 850 Balance 300 850 Meds/Results Medications: Active Medications Generic Name Dose Route Start Last Admin Trade Name Freq PRN Reason Stop Dose Admin Hydrocodone Bitart/Acetaminophen 1 tab 02/15/21 20:41 Hydrocodone/Acetaminophen (*Crx) 5-325 Mg Tablet PO Q6HR PRN Pain Aspirin 81 mg 02/16/21 08:00 02/16/21 08:37 Aspirin 81 Mg Chewable Tablet PO 81 mg DAILY@
[2021-02-16] MEDS: SILVERGEL (ELTA) 45 ML 1 APPLIC TOPICAL (12:03)
--- NOTE | 2021-02-16 12:35 | PM.IMHP ---
H&P: HPI History of Present Illness Date/Time: 02/16/21 12:35 Mr Perez is a long time established patient that has been diagnosed with idiopathic neuropathy. 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 The patient has had an attempted arthrodesis of the first metatarsal phalangeal joint in the past that subsequently went on to a non union. Despite the non union he did go on to heal the neuropathic ulcer for many years. He presented yesterday,February 15, 2021, in my office with a red swollen right foot with drainage to the bottom of his right medial plantar forefoot. He states the drainage started 4 days prior. The patient tried local wound care on his own for several days and took Penicillin pills that his had left over from a prior sinus infection. He states that the swelling and redness worsened so he finally decided to call my office. I did perform an in-office debridement of the ulceration that was noted to extend to bone plantarly. I urged the patient to go to the ER for IV antibiotics and to be admitted for his deep infection. The patient relates fevers at home for two days. Chief Complaint: Neuropathic infected ulceration right foot Review of Systems Constitutional: Constitutional: Reports as per HPI [facility] Past Medical History Medical History Abnormal CT of paranasal sinuses COPD (chronic obstructive pulmonary disease) Hyperlipidemia Peripheral neuropathy Tobacco use Surgical History Surgical History H/O foot surgery Family History Family History Other Family history of coronary artery disease Family history of primary malignant neoplasm of liver Hypertension Social History Social History Social History: pt smoke a half pack a day Smoking packs per day: 1 Smoking cigarettes per day: 20.0 Years smoked: 20 Smoking pack-years: 20.00 Smoking status: Current every day smoker Tobacco type: cigarettes Alcohol intake: never Drinks per week: 3 Substance use: never Substance use type: does not use Gender identity (if verbalized by the patient): Male Spiritual care concerns: No Meds Home Medications and Allergies Home Medications Medication Instructions Recorded Confirmed Type aspirin 325 mg tablet,delayed 325 mg PO DAILY 07/16/19 02/15/21 History release ezetimibe 10 mg PO QPM 02/15/21 02/15/21 History Allergies Allergy/AdvReac Type Severity Reaction Status Date / Time No Known Allergies Allergy unk Uncoded 02/15/21 19:18 Vital Signs Vital Signs - 24 hr 02/15/21 17:35 02/15/21 18:55 02/15/21 19:01 Temperature 36.5 C 37.0 C Pulse Rate 78 74 Respiratory Rate 18 18 Blood Pressure 139/85 150/89 H 138/79 Pulse Oximetry 100 100 100 02/15/21 19:13 02/15/21 19:30 02/15/21 20:01 Temperature 37.2 C Pulse Rate 74 76 70 Respiratory Rate 18 18 18 Blood Pressure 138/79 140/86 145/82 H Pulse Oximetry 100 97 100 02/15/21 23:00 02/15/21 23:05 02/16/21 06:00 Temperature 36.8 C 36.8 C 36.2 C L Pulse Rate 62 61 52 L Respiratory Rate 18 20 20 Blood Pressure 135/82 165/92 H 129/80 Pulse Oximetry 98 100 100 Exam Extrem: Ankle/foot/toe images: 1. Discontinuity of skin to plantar first metatarsal head extending to bone. Periwound erythema and severe edema present to the entire first metatarsal phalangeal joint area. H&P: Results Labs Labs: Short CBC 02/15/21 02/16/21 Range/Units 17:49 06:11 WBC 8.3 6.5 (4.5-10.0) K/mm3 Hgb 14.2 14.3 (14.0-18.0) g/dL Hct 41.5 L 43.0 (42.0-52.0) % Plt Count 187 186 (150-375) k/mm3 [facility] 02/15/21 02/16/21 17:49 06:11 Sodium 139 138 Potassium 4.1 4.6 Chloride 107 104 Carbon Dioxide 27 28 BUN 13 13 Creatinine 1.00 1.00 Glucose 84
[2021-02-16 13:27] LABS: Folic Acid 6.4 ng/mL (2.76->20)
--- NOTE | 2021-02-16 15:20 | CONS_ITS ---
DATE OF CONSULTATION: 02/16/2021 REASON FOR CONSULTATION: Osteomyelitis. HISTORY OF PRESENT ILLNESS: 65-year-old male who reminds I had seen him in the distant past. He has had previous right first toe deviation apparently due to structural abnormalities and 2 years ago underwent attempted correction with hardware. This apparently was unsuccessful and a year ago he had repeat operation which unfortunately also did not correct his problem. He has had a previous ulcer, which seemed to heal over the plantar aspect of the first metatarsal head. About 4 to 5 days before admission, the patient had a callus noted on the plantar aspect of the foot and he removed this on his own. He then noted a skin defect and deep ulcer at the same time. This began to drain scant cloudy fluid, and over the next several days, edema and erythema developed of the entire distal medial foot as well as the first toe. This is not painful, but he does have peripheral neuropathy and hence decreased sensation. He saw Dr. Durbin in the office on the day of admission where the ulcer was debrided to a greater depth in diameter. He then was instructed to go to the emergency room for single doses of piperacillin and vancomycin, for reasons I cannot ascertain he was admitted instead. I stopped the above and started him on ceftriaxone. He denies any other known trauma. No known fever, but at home he had chills without rigors. No night sweats. He took several doses of his 's amoxicillin or similar agent after he had the chills. No other recent antibiotics. No immunosuppressants. HABITS: Ongoing smoker 3/4 to 1 pack per day. No alcohol. PRESENT MEDICATIONS: As above. ALLERGIES: NONE KNOWN. PAST MEDICAL HISTORY: Peripheral neuropathy, COPD, hyperlipidemia. FAMILY HISTORY: CAD, cancer. SOCIAL HISTORY: He is . Lives locally. No family at the bedside currently. REVIEW OF SYSTEMS: Chronic cough, the neuropathy. 14-point review otherwise negative. PHYSICAL EXAMINATION: GENERAL: This is a middle-aged male who appears younger than his actual age, in no acute distress. VITAL SIGNS: Since arrival afebrile, 129/80, 52, 20, 100% on room air. SKIN: Warm and dry. No rashes. No hemorrhagic lesions. NODES: He has no cervical adenopathy. EENT: Pupils equal, round, and reactive to light. The oropharynx, oral mucosa normal. NECK: No masses, thyromegaly, tenderness, meningismus. LUNGS: Clear to auscultation and percussion other than scattered rales. No wheezing. No rhonchi. Breath sounds are vesicular. CARDIAC: Regular rate and rhythm. No murmur, gallop, or rub. Pulses are 1+ and equal. ABDOMEN: Nontender. No masses. No organomegaly. EXTREMITIES: Left lower extremity is bland. On the right, he has edema and erythema of the medial distal foot as well as the same over the toe #1. He has a plantar ulcer 1 cm in diameter, can be probed, but not to bone. There is crusting. No necrosis. He has no odor. He has diminished range of motion and lateral deviation at the MTP. LABORATORY DATA: Blood cultures in process. Wound culture also obtained by swab, in process. His white count normal yesterday and again today, hemoglobin 14.3, platelets are 186. Chemistry panel normal entirely. CRP 3.6. RADIOLOGY: I personally reviewed his foot x-ray. This shows hardware in place with lucencies surrounding. I reviewed the radiologist's interpretation as well. ASSESSMENT: 1. Edema and erythema of the right MTP area, acute onset, I think he likely has infected hardware with concurrent acute osteomyelitis of the distal metatarsal and the proximal phalanx. This also may be aseptic loosening, but exam does not support that. Skin melody are suspected including staph and streptococci.
[2021-02-16] MEDS: EZETIMIBE 10 MG TABLET PO (18:07)
[2021-02-16 19:41] VITALS: BP 142/76; PULSE 55; RESP 18; TEMP 36.5; O2SAT 99
[2021-02-17] VITALS (13 sets, daily range): BP systolic 129–157; BP diastolic 72–95; PULSE 48–96; RESP 12–18; TEMP 36.1–36.9; O2SAT 95–100
[2021-02-17] MEDS: LACTATED RINGERS 1,000 ML 30 ML IV CONT ×2 (08:35→11:36)
--- NOTE | 2021-02-17 09:20 | WPDHPUPDATE1 ---
History and Physical Update Update Date/Time: 02/17/21 09:20 History and Physical has been reviewed, including an updated exam of the patient. There are NO changes in the patient's condition. Risks, benefits, and alternatives have been discussed and questions answered. Patient agrees to proceed with procedure. Consented for partial first ray resection right foot.
--- NOTE | 2021-02-17 09:23 | WPDANESEPPF ---
Anes - Initial Pre Proc Eval Procedure: Operation Date: 02/17/21 09:30 Proposed Procedures p Partial First Ray Resection Right Foot - Elliot Durbin JR, MD Date/Time: 02/17/21 09:23 Surgeon: Rosalio Luong MD Pre Op Diagnosis: Osteomyelitis Patient Data Age: 65 Gender: M Height: 1.78 m Weight: 93 kg Last Vital Signs Temp 97.8 F 02/17/21 06:14 Pulse 55 L 02/17/21 06:14 Resp 18 02/17/21 06:14 BP 135/81 02/17/21 06:14 Pulse Ox 97 02/17/21 06:14 Allergies Allergy/AdvReac Type Severity Reaction Status Date / Time No Known Allergies Allergy unk Uncoded 02/15/21 19:18 Home Medications Medication Instructions Recorded Confirmed Type aspirin 325 mg tablet,delayed 325 mg PO DAILY 07/16/19 02/15/21 History release ezetimibe 10 mg PO QPM 02/15/21 02/15/21 History Laboratory Tests 02/16/21 06:10 Vitamin B12 495.0 pg/mL pg/mL (239-931) Folate 6.4 ng/mL ng/mL (2.76->20) Patient hx anesthesia problems: none Family hx anesthesia problems: none PMFSH Past Medical History Medical History Abnormal CT of paranasal sinuses COPD (chronic obstructive pulmonary disease) Hyperlipidemia Peripheral neuropathy Tobacco use Surgical History Surgical History H/O foot surgery Family History Family History Other Family history of coronary artery disease Family history of primary malignant neoplasm of liver Hypertension Social History Social History Social History: pt smoke a half pack a day Smoking packs per day: 1 Smoking cigarettes per day: 20.0 Years smoked: 20 Smoking pack-years: 20.00 Smoking status: Current every day smoker Tobacco type: cigarettes Alcohol intake: never Drinks per week: 3 Substance use: never Substance use type: does not use Gender identity (if verbalized by the patient): Male Spiritual care concerns: No Anes - Eval Final PreProcedure Day of Procedure 02/17/21 09:23 Patient weight: obese Heart: regular rate and rhythm Lungs: clear to auscultation Airway: Mallampati scale class II Neurological: alert and oriented Last oral intake: >/= 8 hours ASA classification: III Emergent: no Anesthetic plan: proceed Anesthesia type and monitoring: general GIVS and standard monitoring Informed Consent: The patient's anesthetic plan and its attendant risks and benefits were discussed with the patient/family/POA. Questions were solicited and answers provided to the satisfaction of the patient/family/POA.
[2021-02-17] MEDS: SILVERGEL (ELTA) 45 ML 1 APPLIC TOPICAL (10:13)
[2021-02-17] MEDS: BUPIVACAINE HCL 0.5% PF 30 ML VIAL INFILTRATE (10:22)
[2021-02-17] MEDS: LIDOCAINE HCL 2% PF INJ 5 ML VIAL 20 ML INFILTRATE (10:22)
[2021-02-17] MEDS: VANCOMYCIN HCL 1,000 MG VIAL 1000 MG TOPICAL (10:57)
--- NOTE | 2021-02-17 11:54 | W.PM.PROC2 ---
Procedure Note - Detailed Date of Procedure 02/17/21 Pre-op Diagnosis Osteomyelitis right forefoot Post-op Diagnosis same Procedure Performed Partial first ray resection site [facility] foot Surgeon Elliot Durbin JR, DPM Anesthesia MAC and local Indications Osteomyelitis right foot Description of Procedure Description of Procedure Under mild sedation, the patient was brought to the operating room, placed on the operating table in the supine position. A pneumatic ankle tourniquet was placed about the patient's ankle. Following general anesthesia and a proximal foot block with 20cs's of a one to one mixture of 2% Lidocaine plain and 0.5% Marcaine plain, the foot was then scrubbed, prepped, and draped in the usual aseptic manner. An Esmarch bandage was then used to examine the patient's foot and pneumatic ankle tourniquet was then inflated. Attention was directed to the dorsal lateral aspect of the hallux and 1st metatarsal phalangeal joint region right foot where a Tennis Racquet style incision was made about the base of the hallux and extending proximally and dorsally along the central shaft of the first metatarsal. The incision was continued deep down through the subcutaneous tissues using sharp and blunt dissection. All bleeders were cauterized as necessary. I made a periosteal incision exposing the dorsal plate over the nonunion site to the first metatarsal phalangeal joint. I utilized the screw removal set to remove the [employer] dorsal plate and screws. I removed the plate because I wanted to maintain as much of the length of the healthy viable distal first metatarsal. I utilized a sagittal bone saw to resect the distal first ray including the hallux, the distal nonunion site as well as the distal first metatarsal. I also resected a clearance fragment of the distal first metatarsal and sent for gross/histo as well as microbiology studies. I resected the sesamoid apparatus at this point along with any non viable tissue. There was no purulence noted. No signs of myonecrosis. I utilized the pulsed lavage system and 3L of saline to thoroughly flush the resection site. I packed the distal first ray resection site with 5cc's of antibiotic beads from [employer] osteoset kit integrated with 1g of Vancomycin. The edges were smoothed out with a bone rasp. I resected the plantar ulcerated tissue with two converging semi-elliptical incisions. Next, the skin was reapproximated and coapted utilizing 3-0 Prolene in Simple interrupted suture fashion technique. I packed the plantar wound with 1/4 Iodoform gauze which will be changed daily post op. Upon completion of the procedure, the incision was dressed with Adaptic, 4 x 4's, Kerlix, and Coban. The pneumatic ankle tourniquet was then deflated and a prompt hyperemic response noted to all remaining digits of the foot. A surgical shoe will be applied. The patient did very well with the procedure and the anesthesia. The patient was transferred to the recovery room with vital signs stable and vascular status intact to all remaining toes of the affected foot. Following a period of postoperative monitoring, the patient will be admitted back to his inpatient room with the following written and oral postoperative instructions: 1. Keep the dressing clean, dry, and intact. Nursing to change the dressing daily and pack the plantar wound with 1/4 iodoform gauze and 4x4 gauze, kerlix and HADLEY Wrap. Use a cast protector bag with showers. 2. The patient should use a surgical shoe for ambulation postoperatively. 3. The patient should be on bedrest with bathroom privileges and elevate the affected foot when at rest. 4. The patient was transferred to the med/surg floor. 5. Continue with DVT prophylaxis per hospitalist. Estimated Blood Loss 5 Drains No Packing Yes Pathology yes (Distal first ray sent for gross and histopathology. Clearance fragment sent for gross and histo and microbiology) Complications No
--- NOTE | 2021-02-17 12:45 | SUR.PHASEI ---
[id number]- Call to floor RN to give report. Per KHADIJAH Ayers she will call back shortly for report when available.
--- NOTE | 2021-02-17 13:06 | PM.IMPN ---
Progress Note: A&P Assessment and Plan (1) Osteomyelitis: Code(s): M86.9 - Osteomyelitis, unspecified Status: Acute Assessment and Plan: Patietn with chronic right 1st metatarsal changes s/p surgery with hardware. Pt presents with small draining ulcer with xray showing suspected osteomyelitis of the first metatarsal and proximal phalanx of the first digit, loosening of surgical fusion plate at first metatarsophalangeal area and old fracture of 3rd metatarsal. Can not exclude osteonecrosis to the third metatarsal head. Was started on Zosyn and Vanco but changed to Rocephin 02/16. Today, patisophie has undergone partial first ray resection site right foot. Continue current abx. Appreciate ID input. Appreciate Podiatry input. (2) Tobacco abuse: Code(s): Z72.0 - Tobacco use Status: Acute Assessment and Plan: Patient was educated about the benefits of smoking cessation. (3) Hyperlipidemia: Code(s): E78.5 - Hyperlipidemia, unspecified Status: Acute Assessment and Plan: Stable. Continue Zetia. (4) Peripheral neuropathy: Code(s): G62.9 - Polyneuropathy, unspecified Status: Acute Assessment and Plan: Patient has a history of peripheral neuropathy that is longstanding. No clear diagnosis. He has been screened for diabetes but negative. Glucose normal here. B12/Folate normal. Possibly related to his chronic back pain. (5) DVT prophylaxis: Code(s): Z29.9 - Encounter for prophylactic measures, unspecified Status: Acute Assessment and Plan: Lovenox Subjective Date/time seen: 02/17/21 13:06 Interval history: 65yo male with hx of TIA, HLD and chronic right toe surgeries here for right foot infection. Patient back from procedure. He feels well. Eating without problems. No n/v. No CP or SOB. Exam Narrative: AF 97.6 155/88 54 12 100% ra Gen - NARD Chest - CTA bilaterally, nml RR CV - RRR S1/S2 Abd - Soft, NT/ND, Positive BS Ext - No pedal edema. Psych - Nml mood and affect Skin - right foot dressing blood stained Objective Data Vital Signs Vital Signs: Vital Signs - 24 hr 02/16/21 19:41 02/17/21 06:14 02/17/21 08:30 Temperature 97.7 F 97.8 F 97.1 F L Pulse Rate 55 L 55 L 55 L Respiratory Rate 18 18 18 Blood Pressure 142/76 H 135/81 129/85 Pulse Oximetry 99 97 95 02/17/21 11:36 02/17/21 11:40 02/17/21 11:55 Temperature 97.6 F Pulse Rate 67 61 55 L Respiratory Rate 12 12 14 Blood Pressure 131/79 135/74 132/81 Pulse Oximetry 95 95 100 02/17/21 12:10 02/17/21 12:20 02/17/21 12:30 Temperature Pulse Rate 56 L 56 L 54 L Respiratory Rate 14 12 12 Blood Pressure 147/85 H 156/89 H 157/95 H Pulse Oximetry 100 100 100 02/17/21 12:45 02/17/21 12:50 Temperature Pulse Rate 48 L 54 L Respiratory Rate 16 12 Blood Pressure 148/88 H 155/88 H Pulse Oximetry 100 100 Intake/Output Intake/Output: Intake & Output 02/14/21 02/15/21 02/16/21 02/17/21 23:59 23:59 23:59 23:59 Intake Total 300 1830 400 Balance 300 1830 400 Meds/Results Medications: Active Medications Generic Name Dose Route Start Last Admin Trade Name Freq PRN Reason Stop Dose Admin Hydrocodone Bitart/Acetaminophen 1 tab 02/15/21 20:41 Hydrocodone/Acetaminophen (*Crx) 5-325 Mg Tablet PO Q6HR PRN Pain Aspirin 81 mg 02/16/21 08:00 02/17/21 10:12 Aspirin 81 Mg Chewable Tablet PO Not Given DAILY@0800 [facility] Aspirin 325 mg 02/18/21 09:00 Aspirin 325 Mg Enteric Tablet PO DAILY [facility] Ezetimibe 10 mg 02/16/21 18:00 02/16/21 18:07 Ezetimibe 10 Mg Tablet PO 10 mg QPM [facility] Administration Enoxaparin Sodium 40 mg 02/16/21 09:00 02/17/21 08:25 Enoxaparin 40 Mg/0.4 Ml Syringe SUB-Q Not Given DAILY [facility] Fentanyl Citrate 25 mcg 02/17/21 09:24 Fentanyl Citrate Inj (*Crx) 100 Mcg/2 Ml Vial IV PUSH Q2M PRN Pain Ceftriaxone Sodium/Dextrose 1 gm in 50
[2021-02-17] MEDS: EZETIMIBE 10 MG TABLET PO (17:05)
[2021-02-17] MEDS: DOCUSATE SODIUM 100 MG CAPSULE PO (20:23)
[2021-02-17] MEDS: FAMOTIDINE 20 MG TABLET PO (20:23)
[2021-02-18 05:51] VITALS: BP 119/52; PULSE 57; RESP 16; TEMP 36.9; O2SAT 98
--- NOTE | 2021-02-18 07:10 | WPDANESPN ---
Anes - Prog Note Post-Op Date/Time: 02/18/21 07:10 Cardiovascular status: normal Respiratory status: normal Airway patency: baseline Mental status: baseline Post-Op hydration status: normal Vital Signs: Last Vital Signs Temp 36.9 C 02/18/21 05:51 Pulse 57 L 02/18/21 05:51 Resp 16 02/18/21 05:51 BP 119/52 L 02/18/21 05:51 Pulse Ox 98 02/18/21 05:51 Pain Score (VAS): 0 I/O: Intake & Output 02/17/21 02/17/21 02/18/21 15:59 23:59 07:59 Intake Total 340 1090 1100 Balance 340 1090 1100 Laboratory Tests 02/16/21 06:11 02/16/21 06:11 Microbiology 02/15/21 22:56 Foot Right Wound Culture - Preliminary Post-procedural complaints: none Patient Feedback: Patient satisfied with anesthetic care.
[2021-02-18] MEDS: ASPIRIN 81 MG CHEWABLE TABLET PO (08:04)
[2021-02-18] MEDS: FAMOTIDINE 20 MG TABLET PO ×2 (08:04→22:02)
[2021-02-18] MEDS: ENOXAPARIN 40 MG/0.4 ML SYRINGE SUB-Q (08:04)
[2021-02-18] MEDS: DOCUSATE SODIUM 100 MG CAPSULE PO ×2 (08:04→22:02)
[2021-02-18] MEDS: SILVERGEL (ELTA) 45 ML 1 APPLIC TOPICAL (08:05)
--- NOTE | 2021-02-18 10:01 | PM.IMPN ---
Progress Note: A&P Assessment and Plan (1) Osteomyelitis: Code(s): M86.9 - Osteomyelitis, unspecified Status: Acute Assessment and Plan: Patient with chronic right 1st metatarsal surgical changes with known hardware in situ. Pt presents with small draining plantar ulcer with xray showing suspected osteomyelitis of the first metatarsal and proximal phalanx of the first digit, loosening of surgical fusion plate at first metatarsophalangeal area and old fracture of 3rd metatarsal. Can not exclude osteonecrosis to the third metatarsal head. Was started on Zosyn and Vanco 02/15 but changed to Rocephin 02/16. Patient POD#1 from a partial right first ray resection. Wound culture growing gram negative bacilli. BCx NGTD. Continue current abx. Appreciate ID input. Appreciate Podiatry input. (2) Tobacco abuse: Code(s): Z72.0 - Tobacco use Status: Acute Assessment and Plan: Patient was educated about the benefits of smoking cessation. He declines Nicotine patch (3) Hyperlipidemia: Code(s): E78.5 - Hyperlipidemia, unspecified Status: Acute Assessment and Plan: Stable. Continue Zetia. (4) Peripheral neuropathy: Code(s): G62.9 - Polyneuropathy, unspecified Status: Acute Assessment and Plan: Patient has a history of peripheral neuropathy that is longstanding. No clear diagnosis. He has been screened for diabetes but negative. Glucose normal here. B12/Folate normal. Possibly related to his chronic back pain. (5) DVT prophylaxis: Code(s): Z29.9 - Encounter for prophylactic measures, unspecified Status: Acute Assessment and Plan: Loveludwigx Subjective Date/time seen: 02/18/21 10:01 Interval history: 65yo male with hx of TIA, HLD and chronic right toe surgeries here for right foot infection. No pain. Up walking to the bathroom. Sitting up in chair. No CP, SOB, n/v. Exam Narrative: AF 98.4 119/52 57 16 98% ra Gen - NARD Chest - CTA bilaterally, nml RR CV - RRR S1/S2 Abd - Soft, NT/ND, Positive BS Ext - No pedal edema. Psych - Nml mood and affect Skin - right foot dressing intact with blood staining Objective Data Vital Signs Vital Signs: Vital Signs - 24 hr 02/17/21 11:36 02/17/21 11:40 02/17/21 11:55 Temperature 97.6 F Pulse Rate 67 61 55 L Respiratory Rate 12 12 14 Blood Pressure 131/79 135/74 132/81 Pulse Oximetry 95 95 100 02/17/21 12:10 02/17/21 12:20 02/17/21 12:30 Temperature Pulse Rate 56 L 56 L 54 L Respiratory Rate 14 12 12 Blood Pressure 147/85 H 156/89 H 157/95 H Pulse Oximetry 100 100 100 02/17/21 12:45 02/17/21 12:50 02/17/21 14:00 Temperature 96.9 F L Pulse Rate 48 L 54 L 63 Respiratory Rate 16 12 18 Blood Pressure 148/88 H 155/88 H 142/72 H Pulse Oximetry 100 100 95 02/17/21 20:00 02/17/21 22:00 02/18/21 05:51 Temperature 98.4 F 98.4 F Pulse Rate 63 96 57 L Respiratory Rate 18 18 16 Blood Pressure 137/85 119/52 L Pulse Oximetry 95 96 98 Intake/Output Intake/Output: Intake & Output 02/15/21 02/16/21 02/17/21 02/18/21 23:59 23:59 23:59 23:59 Intake Total 300 1830 1730 1100 Balance 300 1830 1730 1100 Meds/Results Medications: Active Medications Generic Name Dose Route Start Last Admin Trade Name Freq PRN Reason Stop Dose Admin Acetaminophen 650 mg 02/17/21 16:12 Acetaminophen 325 Mg Tablet PO Q6H PRN Mild Pain (1-3) or Fever Hydrocodone Bitart/Acetaminophen 1 tab 02/17/21 16:14 Hydrocodone/Acetaminophen (*Crx) 5-325 Mg Tablet PO Q6HR PRN Pain Rated 4-6 Aspirin 81 mg 02/16/21 08:00 02/18/21 08:04 Aspirin 81 Mg Chewable Tablet PO 81 mg DAILY@0800 [facility] Administration Docusate Sodium 100 mg 02/17/21 21:00 02/18/21 08:04 Docusate Sodium 100 Mg Capsule PO 100 mg Q12HR [facility]ON Administration Ezetimibe 10 mg 02/16/21 18:00 02/17/21 17:05 Ezetimibe 10 Mg Tablet PO 10 mg QPM [facility] Admi
[2021-02-18 14:00] VITALS: BP 138/82; PULSE 63; RESP 14; TEMP 36.1; O2SAT 100
--- NOTE | 2021-02-18 14:46 | WPDINFPN2 ---
Progress Note: A&P Assessment and Plan (1) Osteomyelitis of great toe of right foot: Code(s): M86.9 - Osteomyelitis, unspecified Status: Acute Assessment and Plan: 1. Probable acute osteomyelitis of R 1st toe and MT. POD # 1 ray amputation. Preop wound culture = E coli, susceptibility pending. 2. Prior toe fixation. REC Ctx #3, stop and place on cefdinir for potential soft tissue infection at the operative bed. If the E coli is non susceptible, adjust antibiotic accordingly , same stop date of 1 week. Ok discharge anytime, sign off. Subjective Date/time seen: 02/18/21 14:46 Interval history: pain under control. Constipated no diarrhea. Exam Narrative: afebrile Const: General: no acute distress Eyes: General: appearance normal, both eyes and all related structures Resp: Effort & Inspection: normal respiratory effort Auscultation: clear to auscultation bilaterally Cardio: Rate: regular rate Rhythm: regular rhythm Heart sounds: no gallops and no murmurs GI: Inspection: non-distended GI Palp: Yes Soft to palpation, No Tenderness to palpation present (GI) and No Guarding due to palpation present (GI) Skin: General skin exam: normal color and no rashes or lesions noted Other: foot dressed no proximal erythema nor tenderness Objective Data Vital Signs Vital Signs: Vital Signs - 24 hr 02/17/21 20:00 02/17/21 22:00 02/18/21 05:51 Temperature 36.9 C 36.9 C Pulse Rate 63 96 57 L Respiratory Rate 18 18 16 Blood Pressure 137/85 119/52 L Pulse Oximetry 95 96 98 Intake/Output Intake/Output: Intake & Output 02/15/21 02/16/21 02/17/21 02/18/21 23:59 23:59 23:59 23:59 Intake Total 300 1830 1730 2180 Balance 300 1830 1730 2180 Meds/Results Medications: Active Medications Generic Name Dose Route Start Last Admin Trade Name Freq PRN Reason Stop Dose Admin Acetaminophen 650 mg 02/17/21 16:12 Acetaminophen 325 Mg Tablet PO Q6H PRN Mild Pain (1-3) or Fever Hydrocodone Bitart/Acetaminophen 1 tab 02/17/21 16:14 Hydrocodone/Acetaminophen (*Crx) 5-325 Mg Tablet PO Q6HR PRN Pain Rated 4-6 Aspirin 81 mg 02/16/21 08:00 02/18/21 08:04 Aspirin 81 Mg Chewable Tablet PO 81 mg DAILY@0800 [facility] Administration Docusate Sodium 100 mg 02/17/21 21:00 02/18/21 08:04 Docusate Sodium 100 Mg Capsule PO 100 mg Q12HR [facility] Administration Ezetimibe 10 mg 02/16/21 18:00 02/17/21 17:05 Ezetimibe 10 Mg Tablet PO 10 mg QPM [facility] Administration Enoxaparin Sodium 40 mg 02/16/21 09:00 02/18/21 08:04 Enoxaparin 40 Mg/0.4 Ml Syringe SUB-Q 40 mg DAILY [facility] Administration Famotidine 20 mg 02/17/21 21:00 02/18/21 08:04 Famotidine 20 Mg Tablet PO 20 mg Q12HR [facility] Administration Fentanyl Citrate 25 mcg 02/17/21 16:14 Fentanyl Citrate Inj (*Crx) 100 Mcg/2 Ml Vial IV PUSH Q2M PRN Pain Rated 7-10 Ondansetron HCl 4 mg 02/17/21 16:14 Ondansetron Inj 4 Mg/2 Ml Vial IV PUSH Q6H PRN Nausea Silver Nitrate 1 applic 02/16/21 09:00 02/18/21 08:05 Silvergel (Elta) 45 Ml TOPICAL 1 applic DAILY [facility] Administration Radiology Results: ITS Impressions Foot X-Ray 02/15/21 18:04 IMPRESSION: Suspected osteomyelitis of the first metatarsal and proximal phalanx of the first digit Loosening of surgical fusion plate at first metatarsophalangeal area Status post surgical fusion at second PIP joint Old fracture deformity/shortening of third metatarsal; possible osteonecrosis of third metatarsal head Intraoperative X-Ray 02/17/21 12:01 IMPRESSION: 1. Transmetatarsal amputation of the first ray.
[2021-02-18] MEDS: EZETIMIBE 10 MG TABLET PO (17:00)
[2021-02-18 21:55] VITALS: BP 141/81; PULSE 63; RESP 18; TEMP 37; O2SAT 100
[2021-02-18] MEDS: CEFDINIR 300 MG CAPSULE PO (22:02)
[2021-02-19 05:55] VITALS: BP 125/72; PULSE 59; RESP 18; TEMP 37.1; O2SAT 100
[2021-02-19 06:58] LABS: Basophils Absolute Auto 0.1 K/mm3 (0.0-0.1); Eosinophils Absolute Auto 0.2 K/mm3 (0-0.3); Eosinophils Percent Auto 3.1 % (0-4.4); Hematocrit 38.7 % (42.0-52.0); Hemoglobin 13.2 g/dL (14.0-18.0); Immature Granulocyte Absolute 0.02 K/mm3 (0.00-0.031); Immature Granulocyte Percent A 0.3 % (0-0.5); Lymphocytes Absolute Auto 1.98 K/mm3 (0.9-3.2); Lymphocytes Percent Auto 27.8 % (18.3-44.2); Mean Corpuscular HGB Conc 34.1 g/dl (32-36); Mean Corpuscular Hemoglobin 32.9 pg (26-34); Mean Corpuscular Volume 96.5 fl (80-100); Mean Platelet Volume 9.7 fl (7.4-10.4); Monocytes Percent Auto 14.3 % (2.6-8.5); Neutrophils Absolute Auto 3.8 K/mm3 (1.3-6.7); Neutrophils Percent Auto 53.5 % (45.5-73.1); Platelet Count Result 181 k/mm3 (150-375); Red Blood Count 4.01 M/mm3 (4.6-6.20); Red Cell Distribution Width 11.8 % (11.5-14.5); White Blood Count 7.1 K/mm3 (4.5-10.0)
[2021-02-19 07:21] LABS: Anion Gap 5 mmol/L (8-16); Blood Urea Nitrogen 12 mg/dL (9-20); CRP 3.3 mg/dL (<1.0); Calcium 8.8 mg/dL (8.4-10.2); Carbon Dioxide 27 mmol/L (22-30); Chloride 104 mmol/L (98-107); Estimated CRCL calculation 62 ml/min; Estimated Glomerular Filt Rate > 60; Glucose 108 mg/dL (65-110); Potassium 4.3 mmol/L (3.4-5.0); Sodium 136 mmol/L (137-145)
[2021-02-19] MEDS: ENOXAPARIN 40 MG/0.4 ML SYRINGE SUB-Q (09:34)
[2021-02-19] MEDS: DOCUSATE SODIUM 100 MG CAPSULE PO (09:34)
[2021-02-19] MEDS: FAMOTIDINE 20 MG TABLET PO (09:34)
[2021-02-19] MEDS: ASPIRIN 81 MG CHEWABLE TABLET PO (09:34)
[2021-02-19] MEDS: CEFDINIR 300 MG CAPSULE PO (09:34)
[2021-02-19] MEDS: SILVERGEL (ELTA) 45 ML 1 APPLIC TOPICAL (09:34)
--- NOTE | 2021-02-19 09:38 | PM.DS ---
DS: Admitting Diagnosis Admitting Diagnosis Right first toe infection DS: Discharge Diagnosis Discharge Diagnosis (1) Osteomyelitis of great toe of right foot: Code(s): M86.9 - Osteomyelitis, unspecified Status: Acute DS: Summary Hospital Course Hospital Course: This is a 65-year-old gentleman with past medical history hyperlipidemia, coronary disease presented 02/15 with worsening erythema and infection of his right 1st toe. He was noted to have an open wound his 1st metatarsal. He was initiated on vancomycin and Zosyn. Infectious Disease was consulted. The next of his right foot showed suspected osteomyelitis 1st metatarsal and proximal phalanx 1st digit. Prior foot hardware noted. Loosening of surgical fusion plate at first metatarsophalangeal area and old fracture of 3rd metatarsal noted. He underwent partial first ray resection on 02/17. This was uneventful. Blood cultures were initially obtained and remained negative. Wound culture swab grew E coli. Antibiotics were changed postoperatively to cefdinir, for 1 week course. His home medications for hyperlipidemia was continued. Smoking cessation was discussed and he declined nicotine patch. Time Spent with Patient Time attestation: Total time spent providing and/or coordinating discharge services: 35 min Exam Narrative: Gen: Alert, NAD Abd: Soft, NT, ND Heart: RRR Lungs: CTAB Ext: No LE edema, R big toe amputation site is dressed and clean DS: Data Data Completed and Pending Pending studies at discharge: Pending at discharge 02/17/21 10:59 Surgical [PTH] Routine Surgical [PTH] Routine Surgical [PTH] Routine Labs on day of discharge: Labs from last 24 hours 02/19/21 02/19/21 06:33 06:33 WBC 7.1 RBC 4.01 L Hgb 13.2 L Hct 38.7 L MCV 96.5 MCH 32.9 MCHC 34.1 RDW 11.8 Plt Count 181 MPV 9.7 Immature Gran % (Auto) 0.3 Neut % (Auto) 53.5 Lymph % (Auto) 27.8 [place] % (Auto) 14.3 H Eos % (Auto) 3.1 Baso % (Auto) 1.0 Lymph # (Auto) 1.98 [place] # (Auto) 1.0 H Eos # (Auto) 0.2 Baso # (Auto) 0.1 Abs Immat Gran (auto) 0.02 Absolute Neuts (auto) 3.8 Absolute Nucleated RBC 0.0 Nucleated RBC % 0.0 Sodium 136 L Potassium 4.3 Chloride 104 Carbon Dioxide 27 Anion Gap 5 L BUN 12 Creatinine 1.10 Estim Creat Clear Calc 62 Estimated GFR > 60 Glucose 108 Calcium 8.8 C-Reactive Protein 3.3 H Preliminary micro results at discharge 02/15/21 22:56 Wound Culture - Preliminary Foot Right Escherichia Coli 02/15/21 20:17 Blood Culture - Preliminary Blood 02/15/21 20:17 Blood Culture - Preliminary Blood Discharge Plan Discharge Consulting providers: Ayde Hensley ; Elliot Durbin Discharging Clinician: Rin Mccullough Patient Disposition: Home Health Service Activity: as tolerated Diet: regular Discharge Instructions: Per Care Coordination: Pt. to have [facility] services for out of school hours care worker. [facility] can be reached at [phone]. They will contact you to schedule the first visit. Follow up in my office Sunday to follow up on partial first ray amputation site: Dr. Durbin [facility] to change the dressing 3x per week until healed. Patient Instructions: Antibiotic Form, How to Stop Smoking (DC), Osteomyelitis (DC), Safe Use of Anticoagulants (DC) Stand Alone Forms: General Discharge Information Follow-up/Referrals: Ismael Spencer MD [Primary Care Provider] - (In 1-2 weeks to assess clinical recovery ) Discharge Medications: New acetaminophen [Mapap (acetaminophen)] 325 mg Tablet 650 mg PO Q6H PRN (Reason: Mild Pain (1-3) Or Fever) Qty: 100 RF: 0 cefdinir 300 mg Capsule 300 mg PO Q12HR Qty: 13 RF: 0 aspirin 325 mg tablet,delayed release (DR/EC) 325 mg PO DAILY Qty: 14 RF: 0 Continued aspirin 325 mg tablet,delayed release (DR/EC) 325 mg PO DAILY RF: 0 ezetimi
--- NOTE | 2021-02-19 10:47 | WPDPN ---
Progress Note: A&P Additional Plan 2 days s/p 1st ray resection. Changed surgical dressing. The incision site well coapted dorsally no SOI. Packed the wound plantarly with iodoform gauze, 4x4 gauze, Kerlix and HADLEY Wrap. Home health to change the dressing 3x per week until healed. Order placed. -In office cultures taken 02/15/21 E. Coli and Klebsiella- -Discharge on abx per ID Follow up in my office Sunday to follow up on partial first ray amputation site Dr. Durbin Subjective Date/time seen: 02/19/21 10:47 Patient seen at bedside resting comfortably. No F/C/N/V. No foot pain. Exam Extrem: Ankle/foot/toe images: 1. Partial 2. Amputation site dorsally is well coapted. No edema no erythema no SOI. 3. Open wound to plantar forefoot left open to heal secondarily. The wound is 100% granular. No purulence no malodor noted. Clear serous drainage noted. Objective Data Vital Signs Vital Signs: Vital Signs - 24 hr 02/18/21 14:00 02/18/21 21:55 02/19/21 05:55 Temperature 36.1 C L 37.0 C 37.1 C Pulse Rate 63 63 59 L Respiratory Rate 14 18 18 Blood Pressure 138/82 141/81 H 125/72 Pulse Oximetry 100 100 100 Intake/Output Intake/Output: Intake & Output 02/16/21 02/17/21 02/18/21 02/19/21 23:59 23:59 23:59 23:59 Intake Total 1830 1730 2780 860 Balance 1830 1730 2780 860 Meds/Results Medications: Active Medications Generic Name Dose Route Start Last Admin Trade Name Freq PRN Reason Stop Dose Admin Acetaminophen 650 mg 02/17/21 16:12 Acetaminophen 325 Mg Tablet PO Q6H PRN Mild Pain (1-3) or Fever Hydrocodone Bitart/Acetaminophen 1 tab 02/17/21 16:14 Hydrocodone/Acetaminophen (*Crx) 5-325 Mg Tablet PO Q6HR PRN Pain Rated 4-6 Aspirin 81 mg 02/16/21 08:00 02/19/21 09:34 Aspirin 81 Mg Chewable Tablet PO 81 mg DAILY@0800 [facility] Administration Cefdinir 300 mg 02/18/21 21:00 02/19/21 09:34 Cefdinir 300 Mg Capsule PO 02/25/21 09:01 300 mg Q12HR [facility] Administration Docusate Sodium 100 mg 02/17/21 21:00 02/19/21 09:34 Docusate Sodium 100 Mg Capsule PO 100 mg Q12HR [facility] Administration Ezetimibe 10 mg 02/16/21 18:00 02/18/21 17:00 Ezetimibe 10 Mg Tablet PO 10 mg QPM [facility] Administration Enoxaparin Sodium 40 mg 02/16/21 09:00 02/19/21 09:34 Enoxaparin 40 Mg/0.4 Ml Syringe SUB-Q 40 mg DAILY [facility] Administration Famotidine 20 mg 02/17/21 21:00 02/19/21 09:34 Famotidine 20 Mg Tablet PO 20 mg Q12HR [facility] Administration Fentanyl Citrate 25 mcg 02/17/21 16:14 Fentanyl Citrate Inj (*Crx) 100 Mcg/2 Ml Vial IV PUSH Q2M PRN Pain Rated 7-10 Ondansetron HCl 4 mg 02/17/21 16:14 Ondansetron Inj 4 Mg/2 Ml Vial IV PUSH Q6H PRN Nausea Silver Nitrate 1 applic 02/16/21 09:00 02/19/21 09:34 Silvergel (Elta) 45 Ml TOPICAL 1 applic DAILY [facility] Administration Radiology Results: ITS Impressions Foot X-Ray 02/15/21 18:04 IMPRESSION: Suspected osteomyelitis of the first metatarsal and proximal phalanx of the first digit Loosening of surgical fusion plate at first metatarsophalangeal area Status post surgical fusion at second PIP joint Old fracture deformity/shortening of third metatarsal; possible osteonecrosis of third metatarsal head Intraoperative X-Ray 02/17/21 12:01 IMPRESSION: 1. Transmetatarsal amputation of the first ray. Labs Labs: Laboratory Results - last 24 hr 02/19/21 02/19/21 06:33 06:33 WBC 7.1 RBC 4.01 L Hgb 13.2 L Hct 38.7 L MCV 96.5 MCH 32.9 MCHC 34.1 RDW 11.8 Plt Count 181 MPV 9.7 Immature Gran % (Auto) 0.3 Neut % (Auto) 53.5 Lymph % (Auto) 27.8 [place] % (Auto) 14.3 H Eos % (Auto) 3.1 Baso % (Auto) 1.0 Lymph # (Auto) 1.98 [place] # (Auto) 1.0 H Eos # (Auto) 0.2 Baso # (Auto) 0.1 Abs Immat Gran (auto) 0.02 Absolute Neuts (auto) 3.8 Absolute Nucleated RBC 0.0 Nucleated RBC % 0.0 Sodium 13
== END 2021-02-19 12:28 | disposition home health service (06) | DRG 497 ==
LOC: ANHED 20:50 → ANH3MEDSUR 02-16
PROVIDERS: Emergency Medicine; Internal Medicine; Podiatrist Foot & Ankle Surgery; Admitting Provider Internal Medicine; Emergency Provider Emergency Medicine; PCP Family Medicine; Visit Provider Internal Medicine Nephrology
PROC: 0QBN0ZZ Excision of Right Metatarsal, Open Approach (ICD-10-PCS; CPT 28104; principal; 2021-02-17 09:30)
DX: M86.8X7 Other osteomyelitis, ankle and foot (principal); L97.513 Non-pressure chronic ulcer of other part of right foot with necrosis of muscle; E78.5 Hyperlipidemia, unspecified; J32.9 Chronic sinusitis, unspecified; M26.609 Unspecified temporomandibular joint disorder, unspecified side; F17.210 Nicotine dependence, cigarettes, uncomplicated; J44.9 Chronic obstructive pulmonary disease, unspecified; I25.10 Atherosclerotic heart disease of native coronary artery without angina pectoris; G62.9 Polyneuropathy, unspecified; Z86.73 Personal history of transient ischemic attack (TIA), and cerebral infarction without residual deficits
CPT/HCPCS: 36415; 73630; 80048; 80053; 82607; 82746; 83605; 83735; 84100; 85025; 85652; 86140; 87040; 87070; 87077; 87186; 87205; 88300; 88305; 88309; 88311; 96365; 99285; A9270; C1713; J0696; J1650; J2250; J2405; J2543; J2704; J3010; J3370; J7120

== ENCOUNTER 2021-08-09 09:36 | Outpatient (CLI) | payer OTHER, SELFPAY ==
--- NOTE | ~2021-08-09 | MR_ITS ---
EXAMINATION: MR brain/brain stem wo/w con EXAM DATE: 08/09/2021 10:48 INDICATION: R20.0 - Anesthesia of skin . TECHNIQUE: Magnetic resonance imaging (MRI) of the brain/brain stem obtained without contrast. Sagit anitha T1, axial diffusion, gradient echo (T2*), T1, T2, FLAIR sequences obtained. Patient was then inj ected with 15 cc intravenous Multihance contrast. Axial and coronal postcontrast T1 weighted sequence s obtained. Comparison is made to prior examination from 07/31/2017. FINDINGS: There are no areas of restricted diffusion to suggest acute infarction. There is no acute hemorrhage seen on the T2*, a hemosiderin sensitive sequence. No intraparenchymal brain mass lesion. There is mild periventricular and subcortical T2/FLAIR signal hyperintensity, nonspecific but probab ly related to small vessel ischemic disease (microangiopathy). There is mild prominence of the sulc i and ventricles related to cerebral atrophy. There are no extra-axial collections. Flow voids are seen in the cerebral arteries on the T2-weighted sequences consistent with their expected patency. Patient has had bilateral ocular lens surgery. Soft tissue is unremarkable. IMPRESSION: 1. No acute intracranial findings. 2. Mild age-related intracranial findings. Reviewed, dictated and finalized at location B. JOURNEYMAN
--- NOTE | 2021-08-09 11:26 | ECG_ITS ---
Measurements Intervals Mathias Rate: 72 P: 11 NH: 172 QRS: 75 QRSD: 90 T: 60 QT: 409 QTc: 450 Interpretive Statements SINUS RHYTHM BASELINE ARTIFACT- I, II, III, AVR, AVL NORMAL ECG Electronically Signed On 08-09-2021 12:00:44 [employer] by Henrry Singh D.O.
== END 2021-08-09 09:37 | disposition home or self-care (01) ==
LOC: ANHIMG 09:38
PROVIDERS: PCP Family Medicine; Visit Provider Physician Assistant Medical
DX: R20.0 Anesthesia of skin (principal); R55 Syncope and collapse; R93.0 Abnormal findings on diagnostic imaging of skull and head, not elsewhere classified
CPT/HCPCS: 70553; 93005; A9577

== ENCOUNTER 2022-08-29 01:20 | Day surgery (SDC) | payer MEDICARE, SELFPAY ==
[2022-08-16 13:13] VITALS: BMI 28.8
--- NOTE | 2022-08-28 11:03 | WPDANESEPPF ---
Anes - Initial Pre Proc Eval Procedure: Operation Date: 08/29/22 12:30 Proposed Procedures p Screening Colonoscopy - Michael Manuel MD Date/Time: 08/28/22 11:03 Surgeon: Michael Manuel MD Pre Op Diagnosis: neoplasm screening Patient Data Age: 66 Gender: M Height: 1.78 m Weight: 91 kg Allergies Allergy/AdvReac Type Severity Reaction Status Date / Time No Known Allergies Allergy Verified 08/29/22 11:30 Home Medications Medication Instructions Recorded Confirmed Type ezetimibe 10 mg tablet 10 mg PO QPM #90 tabs 04/11/22 08/29/22 Rx aspirin 81 mg tablet 81 mg PO DAILY 08/16/22 08/29/22 History Patient hx anesthesia problems: none Family hx anesthesia problems: none Results Review: All pre-operative results and documents have been reviewed as part of the pre-operative evaluation. [facility] Past Medical History Medical History Abnormal CT of paranasal sinuses BMI 29.0-29.9,adult BMI 30.0-30.9,adult COPD (chronic obstructive pulmonary disease) Elevated CK Hyperlipidemia Peripheral neuropathy Tobacco use Surgical History Surgical History H/O foot surgery Family History Family History Father Tuberculosis Heart disease Sepsis Mother Pancreatic cancer Sibling No problems noted. Other Family history of coronary artery disease Family history of primary malignant neoplasm of liver Hypertension Social History Social History Social History: pt smoke a half pack a day Smoking packs per day: 0.75 Smoking cigarettes per day: 15.0 Years smoked: 10 Smoking pack-years: 7.50 Smoking status: Current every day smoker Tobacco type: cigarettes Second hand tobacco smoke exposure: No Alcohol intake: current Drinks per week: 2 Alcohol use details: beer Substance use: never Substance use type: does not use Lack of Transportation: No Lack of Food: Never True Current Housing: I Have Housing Concerned About Future Housing: No Difficulty Paying Gas/Electric Bills: No Difficulty Paying for Meds: No Currently Unemployed: No Education: High School Diploma/GED Difficulty w/ Childcare or Family Care: No Living arrangements: with family Additional living arrangements comments: Occupation/Education: retired 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 Gender identity (if verbalized by the patient): Male Sexual Orientation (if Verbalized by the Patient): Straight or Heterosexual Spiritual care concerns: No Agree to blood products: Yes Anes - Eval Final PreProcedure Day of Procedure 08/28/22 11:03 Patient weight: overweight Heart: regular rate and rhythm Lungs: clear to auscultation Airway: Mallampati scale class II Neurological: alert and oriented Last oral intake: >/= 8 hours ASA classification: III Emergent: no Anesthetic plan: proceed Anesthesia type and monitoring: general GIVS and standard monitoring Results Review: All pre-operative results and documents have been reviewed as part of the pre-operative evaluation. Informed Consent: The patient's anesthetic plan and its attendant risks and benefits were discussed with the patient/family/POA. Questions were solicited and answers provided to the satisfaction of the patient/family/POA.
[2022-08-29 11:20] VITALS: BP 124/79; PULSE 61; RESP 18; TEMP 36.2; O2SAT 100; BMI 29.8
[2022-08-29] MEDS: LACTATED RINGERS 1,000 ML 150 ML IV CONT (11:39)
--- NOTE | 2022-08-29 12:09 | SUR.PREOP ---
1130- Updated patient. Aware that we are running behind schedule. Patient understanding.
--- NOTE | 2022-08-29 12:58 | PM.HPGS ---
History of Present Illness History of Present Illness Consent: Risks, benefits, and alternatives have been discussed and questions answered. Patient agrees to proceed with procedure. Chief complaint: neoplasm screening Narrative: Servando Perez is a 66 year old male with last colonoscopy 5 years ago, also h/o hemorrhoids Review of Systems Constitutional: Constitutional: Denies headache(s) and Denies weakness Eyes: Eyes: Denies blurry vision ENT: Reports Normal hearing present, Denies headache(s) and Denies neck pain Cardiovascular: Cardiovascular: Denies chest pain and Denies dyspnea Respiratory: Respiratory: Denies dyspnea Gastrointestinal: Gastrointestinal: Reports no additional gastrointestinal complaints Genitourinary: Genitourinary: Denies dysuria Musculoskeletal: Musculoskeletal: Denies neck pain Integumentary/Breasts: Skin/Breast: Denies dry skin Neurologic: Reports Normal hearing present, Denies headache(s) and Denies weakness Psychiatric: Psychiatric: Denies anxiety Endocrine: Endocrine: Denies change in body appearance Hematologic/Lymphatic: Hematologic/Lymphatic: Denies easy bleeding Allergic/Immunologic: Allergic/Immunologic: Denies urticaria PMFSH Past Medical History Medical History Abnormal CT of paranasal sinuses BMI 29.0-29.9,adult BMI 30.0-30.9,adult COPD (chronic obstructive pulmonary disease) Elevated CK Hyperlipidemia Peripheral neuropathy Tobacco use Surgical History Surgical History H/O foot surgery Family History Family History Father Tuberculosis Heart disease Sepsis Mother Pancreatic cancer Sibling No problems noted. Other Family history of coronary artery disease Family history of primary malignant neoplasm of liver Hypertension Social History Social History Social History: pt smoke a half pack a day Smoking packs per day: 0.75 Smoking cigarettes per day: 15.0 Years smoked: 10 Smoking pack-years: 7.50 Smoking status: Current every day smoker Tobacco type: cigarettes Second hand tobacco smoke exposure: No Alcohol intake: current Drinks per week: 2 Alcohol use details: beer Substance use: never Substance use type: does not use Lack of Transportation: No Lack of Food: Never True Current Housing: I Have Housing Concerned About Future Housing: No Difficulty Paying Gas/Electric Bills: No Difficulty Paying for Meds: No Currently Unemployed: No Education: High School Diploma/GED Difficulty w/ Childcare or Family Care: No Living arrangements: with family Additional living arrangements comments: Occupation/Education: retired 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 Gender identity (if verbalized by the patient): Male Sexual Orientation (if Verbalized by the Patient): Straight or Heterosexual Spiritual care concerns: No Agree to blood products: Yes Meds Home Medications and Allergies Home Medications Medication Instructions Recorded Confirmed Type ezetimibe 10 mg tablet 10 mg PO QPM #90 tabs 04/11/22 08/29/22 Rx aspirin 81 mg tablet 81 mg PO DAILY 08/16/22 08/29/22 History Allergies Allergy/AdvReac Type Severity Reaction Status Date / Time No Known Allergies Allergy Verified 08/29/22 11:30 Vital Signs Vital Signs - 24 hr 08/29/22 11:20 Temperature 97.1 F L Pulse Rate 61 Respiratory Rate 18 Blood Pressure 124/79 Pulse Oximetry 100 Oxygen Delivery Room Air Exam Const: General: comfortable and no acute distress HENMT: Face/Nose/Sinus: Normal nares present Eyes: General: appearance normal, both eyes and all related structures Neck: Neck: no JVD Resp: Auscultation: clear to auscultation bilaterally Cardio: Rate: regular r
[2022-08-29 13:20] VITALS: BP 118/86; PULSE 73; RESP 19; O2SAT 100
[2022-08-29 13:30] VITALS: BP 141/95; PULSE 57; RESP 14; O2SAT 100
[2022-08-29 13:40] VITALS: BP 150/96; PULSE 62; RESP 14; O2SAT 100
== END 2022-08-29 13:49 | disposition home or self-care (01) ==
PROVIDERS: PCP Family Medicine; Visit Provider Internal Medicine Gastroenterology
PROC: 0DJD8ZZ Inspection of Lower Intestinal Tract, Via Natural or Artificial Opening Endoscopic (ICD-10-PCS; CPT 45378; principal; 2022-08-29 12:30)
DX: Z12.11 Encounter for screening for malignant neoplasm of colon (principal); K64.8 Other hemorrhoids; K92.1 Melena; J44.9 Chronic obstructive pulmonary disease, unspecified; F17.210 Nicotine dependence, cigarettes, uncomplicated; Z79.82 Long term (current) use of aspirin
CPT/HCPCS: G0121; J2704; J7120

== ENCOUNTER 2022-09-29 01:50 | Day surgery (SDC) | payer MEDICARE, SELFPAY ==
--- NOTE | 2022-09-08 12:47 | PC.NURSE ---
Report to the Outpatient Waiting Room, entrance under the green pavilion located off [facility], at time _1000 on date __09/15/22 . Planned Procedure Time: _1200 . Time changes happen often and if your time is changed the preop area will call you the afternoon before. - You and your visitor will be asked to self-screen and do not enter if you have any COVID symptoms. - Only one visitor is requested with a max of two and NO children visitors are allowed at this time. - The patient visitor may be requested to leave or wait in car when not with patient due to distancing restrictions. - A mask is optional within the hospital at this time. Patients may have clear liquids (water, carbonated beverages, clear teas, apple juice) until 3 hours prior to surgery with a maximum of 20 ounces. - No food from midnight until time of surgery - Infants may have breast milk until 4 hours before surgery, formula 6 hours prior to surgery. - Children will be allowed to drink immediately following surgery. If applicable, please bring a bottle or sippy cup to assist with drinking. Juice, water, soda, and popsicles are readily available. For infants on formula, please bring formula the day of surgery. Pacifiers are allowed. Take the following medications with a SIP of water the morning of surgery: __DOXYCYCLINE DO NOT STOP ANY OF YOUR OTHER PRESCRIPTION MEDICATIONS PRIOR TO SURGERY ?EXCEPT THE FOLLOWING Medications to discontinue per physician ____ASPIRIN PER DR GONZALEZ _ Please no make-up, nail greenlandic, hairspray, perfume, deodorant, or body powder the day of surgery. No jewelry (including any body piercings) or valuables the day of surgery, leave them at home. Please take a shower or bath the night before, or the morning of, surgery with an antibacterial soap. Wear comfortable, loose fitting clothing. Children are encouraged to wear pajamas. - Jewelry must be removed prior to entering the operating room. Rings and piercings that are not removed may be cut off. - The hospital will not accept responsibility for valuables. - Please leave all valuables, including medications, at home the day of surgery. If you are going home after surgery, a licensed cdl team truck driver must drive you home. - NO public transportation without another adult if you receive anesthesia. - We recommend that an adult stay with you for 24 hours following discharge. - We also recommend that you do not drive, make important decision, drink alcoholic beverages, or take any drugs that were not prescribed by your health care provider for at least 24 hours after your discharge time. For Pediatric surgeries, we recommend two adults accompany the child home. Follow any additional instructions given to you from your surgeon. If you or anyone in your household have experienced Covid symptoms in the past week, please notify your surgeon or the nurse liaison at the phone number below for possible testing. Telephone instructions given to ___PATIENT and asked if any additional questions and then verbalized understanding. Patient advised to call surgeon office or pre surgery nurse liaison [phone] if any additional questions.
[2022-09-08 12:52] VITALS: BMI 29.4
--- NOTE | 2022-09-21 15:46 | PC.NURSE ---
PT CANCELED FOR 09/15/22 BECAUSE HAD A HEALTH-RELATED ISSUE. RESCHEDULED TO 09/29/22 @ 1130. NO CHANGE IN ALLERGIES, MEDS OR PMH PER PATIENT. ALL PRE-OP INSTRUCTIONS REVIEWED, ALONG WITH NEW DATE/TIME. PT RELAYS UNDERSTANDING. Report to the Outpatient Waiting Room, [facility] under [facility] [address], at time __9:30AM on date __09/29/22 . Planned Procedure Time: __11:30AM . Time changes happen often and if your time is changed the preop area will call you the afternoon before. - You and your visitor will be asked to self-screen and do not enter if you have any COVID symptoms. - Only one visitor is requested with a max of two and NO children visitors are allowed at this time. - The patient visitor may be requested to leave or wait in car when not with patient due to distancing restrictions. - A mask is optional within the hospital at this time. Patients may have clear liquids (water, carbonated beverages, clear teas, apple juice) until 3 hours prior to surgery with a maximum of 20 ounces. - No food from midnight until time of surgery Take the following medications with a SIP of water the morning of surgery: __DOXYCYCLINE DO NOT STOP ANY OF YOUR OTHER PRESCRIPTION MEDICATIONS PRIOR TO SURGERY ?EXCEPT THE FOLLOWING Medications to discontinue per physician ____HOLD ASPIRIN PER DR GONZALEZ Date to take last dose Please no make-up, nail sinhala, hairspray, perfume, deodorant, or body powder the day of surgery. No jewelry (including any body piercings) or valuables the day of surgery, leave them at home. Please take a shower or bath the night before, or the morning of, surgery with an antibacterial soap. Wear comfortable, loose fitting clothing. Children are encouraged to wear pajamas. - Jewelry must be removed prior to entering the operating room. Rings and piercings that are not removed may be cut off. - The hospital will not accept responsibility for valuables. - Please leave all valuables, including medications, at home the day of surgery. If you are going home after surgery, a licensed deliver driver must drive you home. - NO public transportation without another adult if you receive anesthesia. - We recommend that an adult stay with you for 24 hours following discharge. - We also recommend that you do not drive, make important decision, drink alcoholic beverages, or take any drugs that were not prescribed by your health care provider for at least 24 hours after your discharge time. Follow any additional instructions given to you from your surgeon. If you or anyone in your household have experienced Covid symptoms in the past week, please notify your surgeon or the nurse liaison at the phone number below for possible testing. Telephone instructions given to ___PATIENT and asked if any additional questions and then verbalized understanding. Patient advised to call surgeon office or pre surgery nurse liaison [phone] if any additional questions.
--- NOTE | ~2022-09-29 | XR_ITS ---
XR surgery orthopedic DATE: 09/29/2022 12:03 INDICATION: Partial amputation right second toe TECHNIQUE: Spot AP C-arm images of the toes 6 seconds total exposure time 0.9383 cGycm2 total DAP COMPARISON: None FINDINGS: There is indentation of the second digit at the neck of the proximal phalanx. Status post amputation of the first metatarsal at the mid to distal shaft. IMPRESSION: Partial amputation of second digit Reviewed, dictated and finalized at [facility]. Reviewed, dictated and finalized at location B.
--- NOTE | 2022-09-29 07:11 | WPDHPUPDATE1 ---
History and Physical Update Update Date/Time: 09/29/22 07:11 History and Physical has been reviewed, including an updated exam of the patient. There are NO changes in the patient's condition. Risks, benefits, and alternatives have been discussed and questions answered. Patient agrees to proceed with procedure.
--- NOTE | 2022-09-29 10:15 | WPDANESEPPF ---
Anes - Initial Pre Proc Eval Procedure: Operation Date: 09/29/22 11:30 Proposed Procedures p Partial Second Digit Amputation Right Foot - Elliot Durbin JR, MD Date/Time: 09/29/22 10:15 Surgeon: Elliot Durbin JR, MD Pre Op Diagnosis: osteomyelitis right foot Patient Data Age: 66 Gender: M Height: 1.78 m Weight: 92.99 kg Allergies Allergy/AdvReac Type Severity Reaction Status Date / Time No Known Allergies Allergy Verified 09/21/22 15:44 Home Medications Medication Instructions Recorded Confirmed Type ezetimibe 10 mg tablet 10 mg PO QPM #90 tabs 04/11/22 09/21/22 Rx aspirin 81 mg tablet 81 mg PO DAILY 08/16/22 09/21/22 History doxycycline hyclate 100 mg capsule 100 mg PO BID 09/08/22 09/21/22 History Patient hx anesthesia problems: none Family hx anesthesia problems: none Results Review: All pre-operative results and documents have been reviewed as part of the pre-operative evaluation. [facility] Past Medical History Medical History Abnormal CT of paranasal sinuses BMI 29.0-29.9,adult BMI 30.0-30.9,adult COPD (chronic obstructive pulmonary disease) Elevated CK Hyperlipidemia Peripheral neuropathy Tobacco use Surgical History Surgical History H/O foot surgery Family History Family History Father Tuberculosis Heart disease Sepsis Mother Pancreatic cancer Sibling No problems noted. Other Family history of coronary artery disease Family history of primary malignant neoplasm of liver Hypertension Social History Social History Social History: pt smoke a half pack a day Smoking packs per day: 0.5 Smoking cigarettes per day: 10.0 Years smoked: 20 Smoking pack-years: 10.00 Smoking status: Current every day smoker Tobacco type: cigarettes Second hand tobacco smoke exposure: No Alcohol intake: current Drinks per week: 10 Alcohol use details: beer Substance use: never Substance use type: does not use Lack of Transportation: No Lack of Food: Never True Current Housing: I Have Housing Concerned About Future Housing: No Difficulty Paying Gas/Electric Bills: No Difficulty Paying for Meds: No Currently Unemployed: No Education: High School Diploma/GED Difficulty w/ Childcare or Family Care: No Living arrangements: with family Additional living arrangements comments: Occupation/Education: 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 Gender identity (if verbalized by the patient): Male Sexual Orientation (if Verbalized by the Patient): Straight or Heterosexual Spiritual care concerns: No Agree to blood products: Yes Anes - Eval Final PreProcedure Day of Procedure 09/29/22 10:15 Patient weight: overweight Heart: regular rate and rhythm Lungs: clear to auscultation Airway: Mallampati scale class II Neurological: alert and oriented Last oral intake: >/= 8 hours ASA classification: III Emergent: no Anesthetic plan: proceed Anesthesia type and monitoring: general GIVS and standard monitoring Results Review: All pre-operative results and documents have been reviewed as part of the pre-operative evaluation. Informed Consent: The patient's anesthetic plan and its attendant risks and benefits were discussed with the patient/family/POA. Questions were solicited and answers provided to the satisfaction of the patient/family/POA.
[2022-09-29 10:31] VITALS: BP 122/78; PULSE 69; RESP 14; TEMP 36.6; O2SAT 97
[2022-09-29] MEDS: LACTATED RINGERS 1,000 ML 30 ML IV CONT (10:36)
[2022-09-29] MEDS: ceFAZolin 2 GM/D5W 50 ML 2 GM/50 ML BAG IVPB (11:29)
[2022-09-29] MEDS: LIDOCAINE HCL 2% PF INJ 5 ML VIAL 10 ML INFILTRATE (11:59)
[2022-09-29 12:04] VITALS: BP 114/71; PULSE 58; RESP 12; O2SAT 96
[2022-09-29 12:30] VITALS: BP 138/73; PULSE 57; RESP 14
--- NOTE | 2022-09-29 12:46 | W.PM.PROC2 ---
Procedure Note - Detailed Date of Procedure 09/29/22 Pre-op Diagnosis Osteomyelitis second digit right foot Post-op Diagnosis Same Procedure Performed Partial amputation second digit right foot Surgeon Elliot Durbin JR, DPM Anesthesia MAC and Local Indications Chronic osteomyelitis second digit right foot Findings Significant edema and radiographic osteolysis second digit right foot Description of Procedure Under mild sedation, the patient was brought to the operating room, placed on the operating table in the supine position. A pneumatic ankle tourniquet was placed about the patient's ankle. Following general anesthesia, I performed a proximal 2nd metatarsal Mooney Block with 10ccs of 2% lIdocaine plain and 0.5% Marcaine plain. The foot was then scrubbed, prepped, and draped in the usual aseptic manner. An Esmarch bandage was then used to examine the patient's foot and pneumatic ankle tourniquet was then inflated. Surgery began in the following manner. Attention was directed to the dorsal aspect of the 2nd digit where a modified fish mouth style incision was made about the head of the proximal phalanx of the the 2nd digit. The incision was continued deep down through the subcutaneous tissues using sharp and blunt dissection. All bleeders were cauterized as necessary. A full-length periosteal incision was made overlying the 2nd digit proximal to the head of the proximal phalanx proximal to the hammertoe implant visualized with fluoroscopy, the second digit was resected with a small oscillating saw blade. The distal 2nd digit was removed from the operative site and placed on the back table and later sent for gross and histopathology a deep wound culture swab was taken from the distal aspect of the digit. The remaining tissue was healthy and bleeding. The remaining bone of the proximal phalanx was healthy. The wound site was then flushed with copious amounts of sterile saline. Next, the skin was reapproximated and coapted utilizing 4-0 Prolene in simple interrupted suture fashion technique. Upon completion of the procedure, the incision was dressed with Steri-Strips, Adaptic, 4 x 4's, Kerlix, and Coban. The pneumatic ankle tourniquet was then deflated and a prompt hyperemic response noted to all digits of the foot. A surgical shoe was then applied. The patient did very well with the procedure and the anesthesia. The patient was transferred to the recovery room with vital signs stable and vascular status intact to all remaining toes of the affected foot. Following a period of postoperative monitoring, the patient will be discharged home on the following written and oral postoperative instructions: 1. Keep the dressing clean, dry, and intact. Use a cast protector bag with showers. 2. The patient should use a surgical shoe for ambulation postoperatively. 3. The patient should be on bedrest with bathroom privileges and elevate the affected foot when at rest. 4. The patient to contact Dr. Durbin for all postop care and if any problems arise. 5. Prescriptions were written for Percocet 5/325 dispensed 40 to be taken 1 p.o. q.4 to 6 hours as needed for severe pain. Estimated Blood Loss 1 Drains No Packing No Pathology None sent Complications No immediate complications Condition Stable Disposition Same day
[2022-09-29 13:00] VITALS: BP 120/75; PULSE 58; RESP 15
[2022-09-29 13:10] VITALS: BP 122/74; PULSE 57; RESP 16
== END 2022-09-29 13:16 | disposition home or self-care (01) ==
PROVIDERS: PCP Family Medicine; Visit Provider Podiatrist Foot & Ankle Surgery
PROC: (CPT 28825; principal; 2022-09-29 11:30)
DX: M86.671 Other chronic osteomyelitis, right ankle and foot (principal); E78.5 Hyperlipidemia, unspecified; J44.9 Chronic obstructive pulmonary disease, unspecified; G62.1 Alcoholic polyneuropathy; F17.210 Nicotine dependence, cigarettes, uncomplicated
CPT/HCPCS: 28825; 87070; 87075; 87205; 88305; 88311; 99199; J0690; J2250; J2704; J3010; J7120

== ENCOUNTER 2025-04-20 13:30 | Outpatient (CLI) | payer MEDICARE, SELFPAY ==
--- NOTE | ~2025-04-20 | CT_ITS ---
EXAMINATION: CT lung screening DATE: 04/20/2025 13:51 INDICATION: Personal history of nicotine dependence TECHNIQUE: Computed tomography (CT) of the chest was performed without intravenous contrast. The dose-length product was 138.67 mGy-cm. Automated exposure control and iterative reconstruction technique were employed. COMPARISON: CT dated 01/16/2019 FINDINGS: Heart size normal. No significant pleural or pericardial effusion. No thoracic lymphadenopathy. There is atherosclerosis of the aorta and coronary arteries. Calcified granulomas of the right lower lobe. No focal airspace consolidation. There is focal scarring right lower lobe. No endobronchial lesions. No pneumothorax. No suspicious pulmonary nodules or masses. No focal pneumonia. Mild thoracic spondylosis. IMPRESSION: 1. Lung-RADS category 1: Negative. Continue annual screening with noncontrast low-dose chest CT in 12 months. Reviewed, dictated and finalized at location O. IMPRESSION: 1. Lung-RADS category 1: Negative. Continue annual screening with noncontrast l ow-dose chest CT in 12 months.
== END 2025-04-20 13:31 | disposition home or self-care (01) ==
PROVIDERS: PCP Family Medicine; Visit Provider Physician Assistant Medical
DX: Z12.2 Encounter for screening for malignant neoplasm of respiratory organs (principal); Z87.891 Personal history of nicotine dependence
CPT/HCPCS: 71271